=== PATIENT | male | born 1955 | race American Indian/Alaskan Native ===

== ENCOUNTER 2021-04-19 23:47 | Emergency (ER) | payer MEDICARE ==
--- NOTE | 2021-04-20 00:36 | Emergency Department Report ---
HPI <KAMILLA CHANELNETTA - Last Filed: 04/20/21 16:16> - HPI HPI: 65-year-old male with history of diabetes, CKD, and Alzheimer's dementia brought from [facility] due to concern about the patient's combative, violent, and threatening behavior. According to the EMS report and the documents provided by the shelter, the patient has a history of becoming very agitated. However, his agitation has gotten to the point where he yells and screams, and has been attempting to leave. He does not follow staff directions and becomes violent with them. Reportedly earlier tonight he threatened to kill staff at the shelter. For that reason they felt that he was a danger to himself and sent him to the emergency room for further evaluation. Of note, this is not a new problem for him but has been ongoing. The patient himself denies knowledge of why he is here. He denies any physical complaints. He denies SI/HI, auditory hallucinations, visual hallucinations, or any other psychiatric symptoms. Nonetheless, the patient is oriented only to self and not to time, place, or situation. Labs have resulted and reveal no significant leukocytosis and only mild anemia. Creatinine is elevated at 1.9 with elevated BUN of 33. Nonetheless, review the patient's medical records from his other facility reveals he has a history of CKD with his most recent creatinine being 1.5. Although he may have slight JOHNNIE, this would not explain the patient's current presentation. He should continue t o drink copious fluids. He is medically cleared for mental health assessment and placement if necessary. Urinalysis and UDS is still pending. I have sent a coronavirus test as well. <GRICELDA CLARK - Last Filed: 04/23/21 10:29> - General Chief Complaint: Psych Time Seen by Provider: 04/20/21 00:14 ED Past Medical Hx <YANIQUEDIEGO - Last Filed: 04/20/21 16:16> - Past Medical History Previous Medical History?: Yes Hx Hypertension: Yes Hx Diabetes: Yes Hx Dementia: Yes - Social History Smoking Status: Light Tobacco Smoker Substance Use Type: None <GRICELDA CLARK - Last Filed: 04/23/21 10:29> - Medications Home Medications: Home Medications Medication Instructions Recorded Confirmed Last Taken Type amLODIPine 10 mg PO QDAY #30 tablet 07/02/16 04/20/21 Unknown Rx Acetaminophen 1,000 mg PO Q6H PRN 04/20/21 04/20/21 Unknown History Aspirin 325 mg PO QDAY 04/20/21 04/20/21 Unknown History Insulin NPH Hum/Reg Insulin Hm 35 unit SQ DAILY 04/20/21 04/20/21 Unknown History [HumuLIN 70-30 Vial] Metoprolol Xl [Metoprolol 25 mg PO QDAY 04/20/21 04/20/21 Unknown History SUCCINATE ER TAB] Pioglitazone HCl [Actos] 30 mg PO DAILY 04/20/21 04/20/21 Unknown History Sertraline [Zoloft] 50 mg PO QDAY 04/20/21 04/20/21 Unknown History donepeziL [Aricept] 10 mg PO QDAY 04/20/21 04/20/21 Unknown History ED Review of Systems ROS: Stated complaint: MH Other details as noted in HPI <DIEGO CHANEL - Last Filed: 04/20/21 16:16> ROS: Stated complaint: MH Other details as noted in HPI Constitutional: denies: chills, fever Eyes: denies: eye pain, vision change ENT: denies: throat pain, congestion Respiratory: denies: cough, shortness of breath Cardiovascular: denies: chest pain, palpitations Gastrointestinal: denies: abdominal pain, nausea, vomiting Genitourinary: denies: dysuria Musculoskeletal: denies: back pain Skin: denies: rash Neurological: denies: headache, weakness, numbness Psychiatric: denies: auditory hallucinations, visual hallucinations, homicidal thoughts, suicidal thoughts <GRICELDA CLARK - Last Filed: 04/23/21 10:29> Physical Exam - Physical Exam Vital Signs: Vital Signs 04/20/21 04/20/21 04/20/21 00:54 02:32 09:06 Temperature 97.8 F 97.9 F Pulse Rate 65 69 Respiratory 20 20 18 Rate Blood Pressure 178/64 139/70 [Left] O2 Sat by Pulse 98 100 98 Oximetry <DIEGO CHANEL - Last Filed: 04/20/21 16:16> - Physical Exam Physical Exam: GENERAL: Well developed and well nourished. No acute distress HEENT: Normocephalic. No obvious signs of trauma. Moist mucous membranes. Poor dentition. EYES: Extraocular movements are intact. NECK: Supple. Trachea is midline. LUNGS: Nonlabored breathing. Equal chest rise bilaterally. Clear to auscultation bilaterally. HEART/CARDIOVASCULAR: Regular rate and rhythm. No murmurs or rubs. VASCULAR: 2+ peripheral pulses. Cap refill < 2 seconds ABDOMEN: Abdomen is soft and nondistended. There is no significant tenderness, guarding or rebound. SKIN: Skin is warm and dry NEURO: Patient is awake and alert. Oriented to self but nbot to time, place, or situation. rfid engineer II-XII grossly intact. No focal deficits. Normal motor and sensory exam throughout. Normal speech. Normal gait. MUSCULOSKELETAL: No obvious deformities. No significant tenderness. Normal ROM throughout. <GRICELDA CLARK - Last Filed: 04/23/21 10:29> ED Course Vital Signs 04/20/21 04/20/21 04/20/21 00:54 02:32 09:06 Temperature 97.8 F 97.9 F Pulse Rate 65 69 Respiratory 20 20 18 Rate Blood Pressure 178/64 139/70 [Left] O2 Sat by Pulse 98 100 98 Oximetry <DIEGO CHANEL - Last Filed: 04/20/21 16:16> ED Medical Decision Making - Lab Data Result diagrams: 04/20/21 00:33 04/20/21 00:33 - Medical Decision Making Patient is discharged back to [facility]. <DIEGO CHANEL - Last Filed: 04/20/21 16:16> - Lab Data Result diagrams: 04/20/21 00:33 04/20/21 00:33 Lab Results 04/20/21 04/20/21 04/20/21 Range/Units 00:33 00:33 00:33 WBC 6.4 (4.5-11.0) K/mm3 RBC 3.31 L (3.65-5.03) M/mm3 Hgb 10.0 L (11.8-15.2) gm/dl Hct 29.5 L (35.5-45.6) % MCV 89 (84-94) fl MCH 30 (28-32) pg MCHC 34 (32-34) % RDW 14.5 (13.2-15.2) % Plt Count 219 (140-440) K/mm3 Lymph % (Auto) 27.3 (13.4-35.0) % [place] % (Auto) 9.6 H (0.0-7.3) % Eos % (Auto) 1.6 (0.0-4.3) % Baso % (Auto) 0.8 (0.0-1.8) % Lymph # (Auto) 1.7 (1.2-5.4) K/mm3 [place] # (Auto) 0.6 (0.0-0.8) K/mm3 Eos # (Auto) 0.1 (0.0-0.4) K/mm3 Baso # (Auto) 0.1 (0.0-0.1) K/mm3 Seg Neutrophils % 60.7 (40.0-70.0) % Seg Neutrophils # 3.9 (1.8-7.7) K/mm3 Sodium 142 (137-145) mmol/L Potassium 4.2 (3.6-5.0) mmol/L Chloride 108.0 H (98-107) mmol/L Carbon Dioxide 25 (22-30) mmol/L Anion Gap 13 mmol/L BUN 31 H (9-20) mg/dL Creatinine 1.9 H (0.8-1.3) mg/dL Estimated GFR 43 ml/min BUN/Creatinine Ratio 16 % Glucose 133 H (75-100) mg/dL Calcium 8.8 (8.4-10.2) mg/dL Urine Color (Yellow) Urine Turbidity (Clear) Urine pH (5.0-7.0) Ur Specific Temple (1.003-1.030) Urine Protein (Negative) mg/dL Urine Glucose (UA) (Negative) mg/dL Urine Ketones (Negative) mg/dL Urine Blood (Negative) Urine Nitrite (Negative) Urine Bilirubin (Negative) Urine Urobilinogen (<2.0) mg/dL Ur Leukocyte Esterase (Negative) Urine WBC (Auto) (0.0-6.0) /HPF Urine RBC (Auto) (0.0-6.0) /HPF Urine Mucus /HPF Salicylates < 0.3 L (2.8-20.0) mg/dL Urine Opiates Screen Urine Methadone Screen Acetaminophen (10.0-30.0) ug/mL Ur Barbiturates Screen Ur Phencyclidine Scrn Ur Amphetamines Screen U Benzodiazepines Scrn Urine Cocaine Screen U Marijuana (THC) Screen Drugs of Abuse Note Plasma/Serum Alcohol (0-0.07) % Coronavirus (PCR) (Negative) 04/20/21 04/20/21 04/20/21 Range/Units 00:33 00:33 Unknown WBC (4.5-11.0) K/mm3 RBC (3.65-5.03) M/mm3 Hgb (11.8-15.2) gm/dl Hct (35.5-45.6) % MCV (84-94) fl MCH (28-32) pg MCHC (32-34) % RDW (13.2-15.2) % Plt Count (140-440) K/mm3 Lymph % (Auto) (13.4-35.0) % [place] % (Auto) (0.0-7.3) % Eos % (Auto) (0.0-4.3) % Baso % (Auto) (0.0-1.8) % Lymph # (Auto) (1.2-5.4) K/mm3 [place] # (Auto) (0.0-0.8) K/mm3 Eos # (Auto) (0.0-0.4) K/mm3 Baso # (Auto) (0.0-0.1) K/mm3 Seg Neutrophils % (40.0-70.0) % Seg Neutrophils # (1.8-7.7) K/mm3 Sodium (137-145) mmol/L Potassium (3.6-5.0) mmol/L Chloride (98-107) mmol/L Carbon Dioxide (22-30) mmol/L Anion Gap mmol/L BUN (9-20) mg/dL Creatinine (0.8-1.3) mg/dL Estimated GFR ml/min BUN/Creatinine Ratio % Glucose (75-100) mg/dL Calcium (8.4-10.2) mg/dL Urine Color Straw (Yellow) Urine Turbidity Clear (Clear) Urine pH 5.0 (5.0-7.0) Ur Specific Temple 1.014 (1.003-1.030) Urine Protein 100 mg/dl (Negative) mg/dL Urine Glucose (UA) Neg (Negative) mg/dL Urine Ketones Neg (Negative) mg/dL Urine Blood Neg (Negative) Urine Nitrite Neg (Negative) Urine Bilirubin Neg (Negative) Urine Urobilinogen < 2.0 (<2.0) mg/dL Ur Leukocyte Esterase Neg (Negative) Urine WBC (Auto) 1.0 (0.0-6.0) /HPF Urine RBC (Auto) 2.0 (0.0-6.0) /HPF Urine Mucus Few /HPF Salicylates (2.8-20.0) mg/dL Urine Opiates Screen Urine Methadone Screen Acetaminophen 5.0 L (10.0-30.0) ug/mL Ur Barbiturates Screen Ur Phencyclidine Scrn Ur Amphetamines Screen U Benzodiazepines Scrn Urine Cocaine Screen U Marijuana (THC) Screen Drugs of Abuse Note Plasma/Serum Alcohol < 0.01 (0-0.07) % Coronavirus (PCR) (Negative) 04/20/21 04/20/21 Range/Units Unknown Unknown WBC (4.5-11.0) K/mm3 RBC (3.65-5.03) M/mm3 Hgb (11.8-15.2) gm/dl Hct (35.5-45.6) % MCV (84-94) fl MCH (28-32) pg MCHC (32-34) % RDW (13.2-15.2) % Plt Count (140-440) K/mm3 Lymph % (Auto) (13.4-35.0) % [place] % (Auto) (0.0-7.3) % Eos % (Auto) (0.0-4.3) % Baso % (Auto) (0.0-1.8) % Lymph # (Auto) (1.2-5.4) K/mm3 [place] # (Auto) (0.0-0.8) K/mm3 Eos # (Auto) (0.0-0.4) K/mm3 Baso # (Auto) (0.0-0.1) K/mm3 Seg Neutrophils % (40.0-70.0) % Seg Neutrophils # (1.8-7.7) K/mm3 Sodium (137-145) mmol/L Potassium (3.6-5.0) mmol/L Chloride (98-107) mmol/L Carbon Dioxide (22-30) mmol/L Anion Gap mmol/L BUN (9-20) mg/dL Creatinine (0.8-1.3) mg/dL Estimated GFR ml/min BUN/Creatinine Ratio % Glucose (75-100) mg/dL Calcium (8.4-10.2) mg/dL Urine Color (Yellow) Urine Turbidity (Clear) Urine pH (5.0-7.0) Ur Specific [place] (1.003-1.030) Urine Protein (Negative) mg/dL Urine Glucose (UA) (Negative) mg/dL Urine Ketones (Negative) mg/dL Urine Blood (Negative) Urine Nitrite (Negative) Urine Bilirubin (Negative) Urine Urobilinogen (<2.0) mg/dL Ur Leukocyte Esterase (Negative) Urine WBC (Auto) (0.0-6.0) /HPF Urine RBC (Auto) (0.0-6.0) /HPF Urine Mucus /HPF Salicylates (2.8-20.0) mg/dL Urine Opiates Screen Negative Urine Methadone Screen Negative Acetaminophen (10.0-30.0) ug/mL Ur Barbiturates Screen Negative Ur Phencyclidine Scrn Negative Ur Amphetamines Screen Negative U Benzodiazepines Scrn Negative Urine Cocaine Screen Negative U Marijuana (THC) Screen Negative Drugs of Abuse Note Disclamer Plasma/Serum Alcohol (0-0.07) % Coronavirus (PCR) Negative (Negative) - Medical Decision Making 65-year-old male with Alzheimer's dementia brought from his shelter due to concern for agitation and combativeness as well as violence and threats against staff at his nursing facility. The patient is oriented only to self but not to time, place, or situation. He has no complaints and denies SI/HI, auditory hallucinations, visual hallucinations, or any other psychiatric symptoms. He also denies any physical complaints. Nonetheless, given the statements provided by staff at his facility which state that the patient threatened to kill staff, we will send a full set of medical clearance labs and have the patient evaluated by the mental health classification control clerk as well as case management to determine whether the patient would be better cared for in a different environment. <GRICELDA CLARK - Last Filed: 04/23/21 10:29> Critical care attestation.: If time is entered above; I have spent that time in minutes in the direct care of this critically ill patient, excluding procedure time. <DIEGO CHANEL - Last Filed: 04/20/21 16:16> Critical care attestation.: If time is entered above; I have spent that time in minutes in the direct care of this critically ill patient, excluding procedure time. <GRICELDA CLARK - Last Filed: 04/23/21 10:29> ED Disposition Is pt being admited?: No Does the pt Need Aspirin: No <DIEGO CHANEL - Last Filed: 04/20/21 16:16> Is pt being admited?: No <GRICELDA CLARK - Last Filed: 04/23/21 10:29> Clinical Impression: Agitation due to dementia, JOHNNIE (acute kidney injury) Disposition: DC/TX-70 ANOTHER TYPE HLTHCARE Condition: Stable Additional Instructions: OUTPATIENT MENTAL HEALTH RESOURCES [facility], [facility] Gayle Cevallos MD: [address] [place] [address] [place] [address] [facility]: [facility] [facility] [address] [place] [address] [place] [address] [phone] [facility]: [facility] Healthcare: [address] [place] [address] [address] [facility] [place] [address] [facility] [address] [facility]: Claude Smith MD: [id number] [facility] [address] [facility] [id number] [facility]: [address] [place], [place] [id number] [phone] [place] CRISIS AND ACCESS LINE: Referrals: PRIMARY CAREMD [Primary Care Provider] - 3-5 Days
[2021-04-20 00:50] LABS: Basophils # (Auto) 0.1 K/mm3 (0.0-0.1); Basophils % (Auto) 0.8 % (0.0-1.8); Eosinophils # (Auto) 0.1 K/mm3 (0.0-0.4); Eosinophils % (Auto) 1.6 % (0.0-4.3); Hematocrit 29.5 % (35.5-45.6); Lymphocytes # (Auto) 1.7 K/mm3 (1.2-5.4); Lymphocytes % (Auto) 27.3 % (13.4-35.0); Mean Corpuscular HGB Conc 34 % (32-34); Mean Corpuscular Volume 89 fl (84-94); Monocytes # (Auto) 0.6 K/mm3 (0.0-0.8); Monocytes % (Auto) 9.6 % (0.0-7.3); Platelet Count 219 K/mm3 (140-440); Red Blood Count 3.31 M/mm3 (3.65-5.03); Red Cell Distribution Width 14.5 % (13.2-15.2)
[2021-04-20 01:06] LABS: Calcium 8.8 mg/dL (8.4-10.2)
[2021-04-20 08:41] LABS: Amphetamine Screen,Urine Negative; Benzodiazepines Screen,Urine Negative; Bilirubin,Urine NEG (Negative); Blood,Urine NEG (Negative); Cannabinoid Screen,Urine Negative; Cocaine Screen,Urine Negative; Color,Urine Straw (Yellow); Methadone Screen,Urine Negative; Mucus,Urine FEW /HPF; Opiate Screen,Urine Negative; Urobilinogen,Urine < 2.0 mg/dL (<2.0)
[2021-04-20 09:08] VITALS: BP 139/70
--- NOTE | 2021-04-20 11:16 | Event Note ---
S: No concerns O: Stable vital signs, patient appears well comfortable, calm cooperative A: Alzheimer's dementia. Patient is medically clear for psychiatric care P: Awaiting treatment recommendation per behavioral health team This gentleman has been discharged back to nursing home facility. I agree that this is an appropriate disposition.
--- NOTE | 2021-04-20 13:42 | Consultation ---
History of Present Illness - Reason for Consult Consult date: 04/20/21 Reason for consult: Agitation - Chief Complaint Chief complaint: Per ED Note: 65-year-old male with history of diabetes, CKD, and Alzheimer's dementia brought from [facility] due to concern about the patient's combative, violent, and threatening behavior. According to the EMS report and the documents provided by the long term, the patient has a history of becoming very agitated. However, his agitation has gotten to the point where he yells and screams, and has been attempting to leave. He does not follow staff directions and becomes violent with them. Reportedly earlier tonight he threatened to kill staff at the long term. For that reason they felt that he was a danger to himself and sent him to the emergency room for further evaluation. Of note, this is not a new problem for him but has been ongoing. The patient himself denies knowledge of why he is here. He denies any physical complaints. He denies SI/HI, auditory hallucinations, visual hallucinations, or any other psychiatric symptoms. Nonetheless, the patient is oriented only to self and not to time, place, or situation. Callum Castillo is a 65 year old who presents via ED for combative behaviors. During my interview with the patient was calm. Patient reports doing well. when asked the reason for this visit, he states " I just got stopped." patient prese nts with some confusion. When asked about employment and living arrangement, he states "I worked at [employer] and live with his ." Per nurse, patient is calm and has not shown any aggressive behaviors. Patient denies any current suicidal/homicidal ideation. PAST PSYCHIATRIC HISTORY: Diagnoses: Alzheimer's dementia Suicide attempts or Self-harm behavior: denies Prior psychiatric hospitalizations: yes Substance Abuse history: denies Previous psychiatric medications tried: noncompliant Outpatient treatment: n/a PAST MEDICAL HISTORY: n/a Family Psychiatric History: None reported or documented SOCIAL HISTORY Marital Status: no Living Arrangements: n/a Employment Status: n/a Access to guns/weapons: n/a Education: n/a History of Abuse: n/a Legal History: n/a REVIEW OF SYSTEMS ROS cannot be reliably obtained from the patient due to his confusion MENTAL STATUS EXAMINATION General Appearance and Behavior: Age appropriate, good hygiene, wearing appropriate clothes, uncooperative polite with questioning. Cooperation: cooperative Psychomotor Behavior: Psychomotor agitation Mood: angry Affect and affective range: irritable Thought Process: circumstantial Thought Content: Paranoid Speech: Normal volume, Regular rate and rhythm Intellectual Functioning: Poor Suicidal Ideation: Denied Homicidal Ideation: Denied Impulse Control: impaired Insight and Judgment: limited Memory: memory impaired Attention:Distractible Orientation: Alert and oriented Diagnoses: Alzheimer's disease unspecified. Current Visit: Yes Status: Acute RECOMMENDATIONS: Risks, benefits and alternatives of medications discussed with the patient, questions answered and consent obtained from patient. PSYCHOTHERAPY: Supportive psychotherapy provided MEDICAL: Per primary team DELIRIUM PRECAUTIONS: Please re-orient patient frequently, keep lights on during the day, and minimize benzodiazepines and opiates as these medications could worsen patient's confusion. JEWEL BLOCKER AND SAWYER: Per medical team DISPOSITION: No indication for acute inpatient psychiatric hospitalization at this time FOLLOW-UP:Will signed off Please contact with any questions and/or concerns. Medications and Allergies Allergies Allergy/AdvReac Type Severity Reaction Status Date / Time No Known Allergies Allergy Verified 06/28/16 20:18 Home Medications Medication Instructions Recorded Confirmed Last Taken Type amLODIPine 10 mg PO QDAY #30 tablet 07/02/16 04/20/21 Unknown Rx Acetaminophen 1,000 mg PO Q6H PRN 04/20/21 04/20/21 Unknown History Aspirin 325 mg PO QDAY 04/20/21 04/20/21 Unknown History Insulin NPH Hum/Reg Insulin Hm 35 unit SQ DAILY 04/20/21 04/20/21 Unknown History [HumuLIN 70-30 Vial] Metoprolol Xl [Metoprolol 25 mg PO QDAY 04/20/21 04/20/21 Unknown History SUCCINATE ER TAB] Pioglitazone HCl [Actos] 30 mg PO DAILY 04/20/21 04/20/21 Unknown History Sertraline [Zoloft] 50 mg PO QDAY 04/20/21 04/20/21 Unknown History donepeziL [Aricept] 10 mg PO QDAY 04/20/21 04/20/21 Unknown History Mental Status Exam - Vital signs Last Vital Signs Temp 97.9 F 04/20/21 09:06 Pulse 69 04/20/21 09:06 Resp 18 04/20/21 09:06 BP 139/70 04/20/21 09:06 Pulse Ox 98 04/20/21 09:06 Results Result Diagrams: 04/20/21 00:33 04/20/21 00:33 Abnormal lab results 04/20/21 04/20/21 04/20/21 Range/Units 00:33 00:33 00:33 RBC 3.31 L (3.65-5.03) M/mm3 Hgb 10.0 L (11.8-15.2) gm/dl Hct 29.5 L (35.5-45.6) % [place] % (Auto) 9.6 H (0.0-7.3) % Chloride 108.0 H (98-107) mmol/L BUN 31 H (9-20) mg/dL Creatinine 1.9 H (0.8-1.3) mg/dL Glucose 133 H (75-100) mg/dL Salicylates < 0.3 L (2.8-20.0) mg/dL Acetaminophen (10.0-30.0) ug/mL 04/20/21 Range/Units 00:33 RBC (3.65-5.03) M/mm3 Hgb (11.8-15.2) gm/dl Hct (35.5-45.6) % [place] % (Auto) (0.0-7.3) % Chloride (98-107) mmol/L BUN (9-20) mg/dL Creatinine (0.8-1.3) mg/dL Glucose (75-100) mg/dL Salicylates (2.8-20.0) mg/dL Acetaminophen 5.0 L (10.0-30.0) ug/mL All other labs normal.
== END 2021-04-20 18:42 | disposition other institution (70) ==
LOC: EDBD → ED 23:47
DX: N17.9 Acute kidney failure, unspecified (principal); Z20.822 Contact with and (suspected) exposure to COVID-19; F03.90 Unspecified dementia, unspecified severity, without behavioral disturbance, psychotic disturbance, mood disturbance, and anxiety; R45.1 Restlessness and agitation; I10 Essential (primary) hypertension; E11.9 Type 2 diabetes mellitus without complications; F17.200 Nicotine dependence, unspecified, uncomplicated; Z79.4 Long term (current) use of insulin; Z79.899 Other long term (current) drug therapy
CPT/HCPCS: 36415; 80048; 80307; 81001; 85025; 99284; U0003; 80320; G0480

== ENCOUNTER 2021-07-24 10:50 | Inpatient (IN) | payer MEDICARE ==
[2021-07-24] MEDS ORDERED: PANTOPRAZOLE 40 MG INJ IV ONE (12:10)
[2021-07-24] MEDS ORDERED: SODIUM CHLORIDE 0.9% 500 ML 500 ML IV ONE ×2 (12:11→13:11)
--- NOTE | 2021-07-24 12:17 | Emergency Department Report ---
HPI - General Chief Complaint: GI Bleed Time Seen by Provider: 07/24/21 11:24 - HPI HPI: 65-year-old male with history of hypertension, prior CVA, advanced dementia, DM 2, and CKD is brought by EMS from his shelter for rectal bleeding. The EMS report was given to the nurse and was apparently very brief saying only that the patient has rectal bleeding. It is unknown how long he has had a rectal bleeding, the nature of it, or any other associated symptoms. The patient is oriented only to self but answers questions and denies any symptoms or co mplaints. However, he says that he "came from work". He does not know why he is here today. He denies rectal bleeding when asked. He is a very unreliable historian and therefore further details of the HPI are limited due to his clinical condition. ED Past Medical Hx - Past Medical History Previous Medical History?: Yes Hx Hypertension: Yes Hx Diabetes: Yes Hx Dementia: Yes - Social History Smoking Status: Light Tobacco Smoker Substance Use Type: None - Medications Home Medications: Home Medications Medication Instructions Recorded Confirmed Last Taken Type amLODIPine 10 mg PO QDAY #30 tablet 07/02/16 07/24/21 Unknown Rx Acetaminophen 1,000 mg PO Q6H PRN 04/20/21 07/24/21 Unknown History Aspirin 325 mg PO QDAY 04/20/21 07/24/21 Unknown History Insulin NPH Hum/Reg Insulin Hm 35 unit SQ DAILY 04/20/21 07/24/21 Unknown Histor y [HumuLIN 70-30 Vial] Metoprolol Xl [Metoprolol 25 mg PO QDAY 04/20/21 07/24/21 Unknown History SUCCINATE ER TAB] Pioglitazone HCl [Actos] 30 mg PO DAILY 04/20/21 07/24/21 Unknown History Sertraline [Zoloft] 50 mg PO QDAY 04/20/21 07/24/21 Unknown History donepeziL [Aricept] 10 mg PO QDAY 04/20/21 07/24/21 Unknown History ED Review of Systems ROS: Stated complaint: RECTAL BLEED Other details as noted in HPI Comment: Unobtainable due to pts medical conditions Physical Exam - Physical Exam Vital Signs: Vital Signs 07/24/21 11:19 Pulse Rate 76 Respiratory 16 Rate Blood Pressure 126/59 [Left] O2 Sat by Pulse 99 Oximetry Physical Exam: GENERAL: Well developed and well nourished. No acute distress HEAD: Normocephalic. No obvious signs of trauma. ENT: Moist mucous membranes. EYES: Extraocular movements are intact. Pupils are equal round and reactive to light bilaterally NECK: Supple. Full ROM is intact. Trachea is midline. LUNGS: Nonlabored breathing. Equal chest rise bilaterally. Clear to auscultation bilaterally. CARDIOVASCULAR: Regular rate and rhythm. II/XI holosystolic murmur. VASCULAR: Cap refill < 2 seconds ABDOMEN: Abdomen is soft and nondistended. There is no significant tenderness, guarding or rebound. RECTAL: Shell Sieve Operator present. There is normal rectal tone but there is melanotic stool with bright red blood present in the rectal vault. Hemoccult positive SKIN: Skin is warm and dry NEURO: Patient is awake and alert. He is oriented to self only. beauty counselor II-XII yovani sly intact. No focal deficits. Normal motor and sensory exam throughout. Normal speech. MUSCULOSKELETAL: No obvious deformities. No significant tenderness. BACK/SPINE: No costovertebral angle tenderness. ED Course Vital Signs 07/24/21 11:19 Pulse Rate 76 Respiratory 16 Rate Blood Pressure 126/59 [Left] O2 Sat by Pulse 99 Oximetry ED Medical Decision Making - Lab Data Result diagrams: 07/25/21 04:07 07/25/21 04:07 Lab Results 07/24/21 07/24/21 07/24/21 Range/Units 12:16 12:16 12:16 WBC 14.2 H (4.5-11.0) K/mm3 RBC 3.44 L (3.65-5.03) M/mm3 Hgb 9.8 L (11.8-15.2) gm/dl Hct 29.6 L (35.5-45.6) % MCV 86 (84-94) fl MCH 29 (28-32) pg MCHC 33 (32-34) % RDW 13.5 (13.2-15.2) % Plt Count 194 (140-440) K/mm3 Lymph % (Auto) 7.4 L (13.4-35.0) % Ness % (Auto) 2.9 (0.0-7.3) % Eos % (Auto) 0.0 (0.0-4.3) % Baso % (Auto) 0.3 (0.0-1.8) % Lymph # (Auto) 1.1 L (1.2-5.4) K/mm3 Ness # (Auto) 0.4 (0.0-0.8) K/mm3 Eos # (Auto) 0.0 (0.0-0.4) K/mm3 Baso # (Auto) 0.0 (0.0-0.1) K/mm3 Seg Neutrophils % 89.4 H (40.0-70.0) % Seg Neutrophils # 12.7 H (1.8-7.7) K/mm3 PT 13.8 (12.2-14.9) Sec. INR 1.00 (0.87-1.13) APTT 27.2 (24.2-36.6) Sec. Sodium 135 L (137-145) mmol/L Potassium 5.4 H (3.6-5.0) mmol/L Chloride 101.8 (98-107) mmol/L Carbon Dioxide 20 L (22-30) mmol/L Anion Gap 19 mmol/L BUN 66 H (9-20) mg/dL Creatinine 2.2 H (0.8-1.3) mg/dL Estimated GFR 36 ml/min BUN/Creatinine Ratio 30 % Glucose 266 H (75-100) mg/dL Calcium 8.7 (8.4-10.2) mg/dL Total Bilirubin 0.20 (0.1-1.2) mg/dL Direct Bilirubin < 0.2 (0-0.2) mg/dL Indirect Bilirubin 0.0 mg/dL AST 10 (5-40) units/L ALT 7 (7-56) units/L Alkaline Phosphatase 50 (35-129) units/L Total Protein 6.9 (6.3-8.2) g/dL Albumin 3.7 L (3.9-5) g/dL Albumin/Globulin Ratio 1.2 % - Medical Decision Making 65-year-old male with diabetes and advanced dementia as well as CKD brought from his shelter due to rectal bleeding. No further history is available because the patient has advanced dementia and is oriented only to self and does not know why he is here. This is his baseline mental status, as I have seen the patient in our emergency department in the past. Vital signs are within normal limits. With a pebble mill operator present, rectal exam was performed revealing grossly melanotic stool with bright red blood present. The remainder of the patient's physical examination revealed only holosystolic murmur of unknown chronicity. Given concern for brisk upper GI bleed, we will obtain a full set of labs including coags. We will order 80 mg of IV Protonix, 1 L of IV fluids, and plan to consult GI once the patient's labs have returned. Labs reveal leukocytosis of 14.2 and anemia with hemoglobin of 9.8. Review of the patient's past medical records reveals that the patient's baseline hemoglobin is 13 although during a recent visit it was 10. Given that the patient presents with GI bleed, the absence of fever or any reported history of infectious symptoms, I feel that the patient's leukocytosis is most likely stress leukocytosis although close monitoring for possible signs/symptoms or infection are warranted. The patient's creatinine is 2.2 and potassium is 5.4. This is not far off from the patient's baseline creatinine of 1.8-2.0. Glucose is elevated at 266 which is being treated by IV fluids. GI has been consulted. At 1:32 PM I spoke with Dr. Penn of GI regarding the case. He agrees with my concern for brisk upper GI bleed and recommends initiation of a Protonix drip with admission to the hospital for planned endoscopy procedure. Repeat H&H has been ordered. At [address] Prieto, the on-call hospitalist regarding the case. He accepts patient for admission and will assume care. Critical Care Time: Yes Critical care time in (mins) excluding proc time.: 35 Critical care attestation.: If time is entered above; I have spent that time in minutes in the direct care of this critically ill patient, excluding procedure time. Critical care time was spent in the evaluation/assessment, work-up, and management of GI bleed requiring initiation of an IV Protonix drip, frequent labs, discussion/consultation with specialist, and frequent reevaluation reassessment ED Disposition Clinical Impression: Dementia, GI bleed, Melena, Hyperglycemia, CKD (chronic kidney disease) Disposition: ADMITTED INPATIENT Is pt being admited?: Yes Condition: Stable
[2021-07-24 13:06] LABS: Alanine Aminotransferase 7 units/L (7-56); Albumin 3.7 g/dL (3.9-5); BUN/Creatinine Ratio 30; Blood Urea Nitrogen 66 mg/dL (9-20); Calcium 8.7 mg/dL (8.4-10.2); Hemolysis Index 4
[2021-07-24 13:08] LABS: Basophils % (Auto) 0.3 % (0.0-1.8); Hematocrit 29.6 % (35.5-45.6); Hemoglobin 9.8 gm/dl (11.8-15.2); Lymphocytes # (Auto) 1.1 K/mm3 (1.2-5.4); Lymphocytes % (Auto) 7.4 % (13.4-35.0); Mean Corpuscular HGB Conc 33 % (32-34); Mean Corpuscular Volume 86 fl (84-94); Monocytes # (Auto) 0.4 K/mm3 (0.0-0.8); Monocytes % (Auto) 2.9 % (0.0-7.3); Platelet Count 194 K/mm3 (140-440); Red Blood Count 3.44 M/mm3 (3.65-5.03); Red Cell Distribution Width 13.5 % (13.2-15.2)
[2021-07-24 13:13] LABS: Bilirubin,Direct < 0.2 mg/dL (0-0.2)
[2021-07-24 13:36] LABS: Partial Thromboplastin Time 27.2 Sec. (24.2-36.6)
--- NOTE | 2021-07-24 13:39 | History and Physical Report ---
History of Present Illness Chief complaint: He was bleeding History of present illness: 65 YO Male Nursing Home Facility Resident at [facility] with Vascular Dementia, Cerebral Atherosclerosis, DM, HTN, CKD, Nicotine Dependence presents to ED for evaluation. Patient has diminished cognition and is unable to provide detailed history. Patient history taken from EMS staff, ED staff, as well as jail facility staff. As per staff the patient was found to have "rectal bleeding" today. EMS was notified and upon arrival the patient was found to be in distress and subsequently tra nsported to [facility] for further care and evaluation of the aforementioned symptoms. The patient was seen and evaluated in the emergency department. All lab and imaging studies reviewed. Patient found to have Hemoccult positive stool as well as blood per blood per rectum. Patient placed in observation status and admitted to telemetry and initiated on GI bleed protocol. GI team consulted in ED. Patient is pending endoscopy as per GI team. No reports of fever, chills, chest pain, palpitation, productive cough, skin rash, recent ill contacts, or known exposure to COVID-19. Prior admission on 06/28/2016 reviewed. All medication listed at time of admission has been reconciled. Advanced care pl anning conducted in ED. Past History Past Medical History: diabetes, hypertension Past Surgical History: No surgical history, Other (Reviewed) Social history: , smoking. denies: alcohol abuse, prescription drug abuse Family history: diabetes, hypertension Medications and Allergies Allergies Allergy/AdvReac Type Severity Reaction Status Date / Time No Known Allergies Allergy Verified 06/28/16 20:18 Home Medications Medication Instructions Recorded Confirmed Last Taken Type amLODIPine 10 mg PO QDAY #30 tablet 07/02/16 07/24/21 Unknown Rx Acetaminophen 1,000 mg PO Q6H PRN 04/20/21 07/24/21 Unknown History Aspirin 325 mg PO QDAY 04/20/21 07/24/21 Unknown History Insulin NPH Hum/Reg Insulin Hm 35 unit SQ DAILY 04/20/21 07/24/21 Unknown History [HumuLIN 70-30 Vial] Metoprolol Xl [Metoprolol 25 mg PO QDAY 04/20/21 07/24/21 Unknown History SUCCINATE ER TAB] Pioglitazone HCl [Actos] 30 mg PO DAILY 04/20/21 07/24/21 Unknown History Sertraline [Zoloft] 50 mg PO QDAY 04/20/21 07/24/21 Unknown History donepeziL [Aricept] 10 mg PO QDAY 04/20/21 07/24/21 Unknown History Active Meds: Active Medications Sodium Chloride (Nacl 0.9% 500 Ml) 500 mls @ 999 mls/hr IV ONCE ONE Stop: 07/24/21 13:41 Pantoprazole Sodium 80 mg/ (Sodium Chloride) 100 mls @ 10 mls/hr IV DIRECT CHARAN Review of Systems ROS unobtainable: due to mental status Exam - Constitutional Vitals: Temp Pulse Resp BP Pulse Ox 76 16 126/59 99 07/24/21 11:19 07/24/21 11:19 07/24/21 11:19 07/24/21 11:19 General appearance: Present: mild distress - EENT Eyes: Present: PERRL ENT: clear oral mucosa, hearing decreased - Neck Neck: Present: supple, normal ROM - Respiratory Respiratory effort: normal Respiratory: bilateral: CTA - Cardiovascular Heart Sounds: Present: S1 & S2. Absent: rub, click - Extremities Extremities: pulses symmetrical, No edema Peripheral Pulses: within normal limits - Abdominal General gastrointestinal: Present: soft, non-tender, non-distended, normal bowel sounds Male genitourinary: Present: normal - Integumentary Integumentary: Present: clear, dry, decreased turgor - Musculoskeletal Musculoskeletal: generalized weakness - Psychiatric Psychiatric: no appropriate mood/affect, no intact judgment & insight, no memory intact - Neurologic Neurologic: CNII-XII intact, no focal deficits, moves all extremities, no gait normal Results - Labs CBC & Chem 7: 07/24/21 15:04 07/24/21 12:16 Labs: Abnormal lab results 07/24/21 07/24/21 Range/Units 12:16 12:16 WBC 14.2 H (4.5-11.0) K/mm3 RBC 3.44 L (3.65-5.03) M/mm3 Hgb 9.8 L (11.8-15.2) gm/dl Hct 29.6 L (35.5-45.6) % Lymph % (Auto) 7.4 L (13.4-35.0) % Lymph # (Auto) 1.1 L (1.2-5.4) K/mm3 Seg Neutrophils % 89.4 H (40.0-70.0) % Seg Neutrophils # 12.7 H (1.8-7.7) K/mm3 Sodium 135 L (137-145) mmol/L Potassium 5.4 H (3.6-5.0) mmol/L Carbon Dioxide 20 L (22-30) mmol/L BUN 66 H (9-20) mg/dL Creatinine 2.2 H (0.8-1.3) mg/dL Glucose 266 H (75-100) mg/dL Albumin 3.7 L (3.9-5) g/dL Assessment and Plan - Patient Problems (1) GI bleed Current Visit: Yes Status: Acute Plan to address problem: GI bleed protocol: IV PPI therapy, CBC, Hemoccult, GI team consulted in ED. Patient pending endoscopy as per GI team. (2) Systemic inflammatory response syndrome Current Visit: Yes Status: Acute Plan to address problem: CBC, empiric IV antibiotic therapy x1 dose, repeat CBC in a.m., supportive care. (3) Vascular dementia Current Visit: Yes Status: Acute Qualifiers: Dementia behavioral disturbance: without behavioral disturbance Qualified Code(s): F01.50 - Vascular dementia without behavioral disturbance Plan to address problem: Verbal prompting, verbal redirection, benzodiazepine therapy as clinically indicated (4) Cerebral atherosclerosis Current Visit: Yes Status: Acute Plan to address problem: Antiplatelet therapy, supportive care. (5) DVT prophylaxis Current Visit: Yes Status: Acute Plan to address problem: SCD to bilateral lower extremities while in bed, hold anticoagulation due to active GI bleed. (6) Advance care planning Current Visit: Yes Status: Acute Plan to address problem: Disease education conducted, care plan discussed, diagnoses discussed, prognosis discussed, patient is full code, +30 minutes.
[2021-07-24] MEDS ORDERED: ALBUTEROL 2.5 MG/3 ML NEBU IH PRN (13:45)
[2021-07-24] MEDS ORDERED: ONDANSETRON 4 MG/2 ML INJ IV PRN (13:45)
[2021-07-24] MEDS: PANTOPRAZOLE 80 MG in SODIUM CHLORIDE 0.9% 100 ML IV SCH (14:31)
[2021-07-24 15:53] LABS: Basophils # (Auto) 0.1 K/mm3 (0.0-0.1); Basophils % (Auto) 0.5 % (0.0-1.8); Hematocrit 27.4 % (35.5-45.6); Hemoglobin 9.3 gm/dl (11.8-15.2); Lymphocytes # (Auto) 1.4 K/mm3 (1.2-5.4); Lymphocytes % (Auto) 9.4 % (13.4-35.0); Mean Corpuscular HGB Conc 34 % (32-34); Mean Corpuscular Volume 85 fl (84-94); Monocytes # (Auto) 0.9 K/mm3 (0.0-0.8); Monocytes % (Auto) 6.2 % (0.0-7.3); Platelet Count 183 K/mm3 (140-440); Red Blood Count 3.21 M/mm3 (3.65-5.03); Red Cell Distribution Width 13.5 % (13.2-15.2)
--- NOTE | 2021-07-24 16:26 | Gastroenterology Consultation ---
History of Present Illness - Reason for Consult Consult date: 07/24/21 GI bleed, melena Requesting physician: GRICELDA CLARK - History of Present Illness The patient is a 65 yo male who presents from snf with reported bloody bm's. Pt with h/o cva, memory loss, and questionable historian, however seemed to be answering some questions appropriately at time of exam. he reports having black appearing stools for the past few days. Denies abdominal pain, no n/v. He takes nsaid's periodically (aleve). h/o ckd, and chronic anemia from previous labs. H/H slightly lower from previous levels but within baseline. HD stable. Past History Past Medical History: diabetes, hypertension Past Surgical History: No surgical history, Other (Reviewed) Social history: , smoking. denies: alcohol abuse, prescription drug abuse Family history: diabetes, hypertension Medications and Allergies Allergies Allergy/AdvReac Type Severity Reaction Status Date / Time No Known Allergies Allergy Verified 06/28/16 20:18 Home Medications Medication Instructions Recorded Confirmed Last Taken Type amLODIPine 10 mg PO QDAY #30 tablet 07/02/16 07/24/21 Unknown Rx Acetaminophen 1,000 mg PO Q6H PRN 04/20/21 07/24/21 Unknown History Aspirin 325 mg PO QDAY 04/20/21 07/24/21 Unknown History Insulin NPH Hum/Reg Insulin Hm 35 unit SQ DAILY 04/20/21 07/24/21 Unknown History [HumuLIN 70-30 Vial] Metoprolol Xl [Metoprolol 25 mg PO QDAY 04/20/21 07/24/21 Unknown History SUCCINATE ER TAB] Pioglitazone HCl [Actos] 30 mg PO DAILY 04/20/21 07/24/21 Unknown History Sertraline [Zoloft] 50 mg PO QDAY 04/20/21 07/24/21 Unknown History donepeziL [Aricept] 10 mg PO QDAY 04/20/21 07/24/21 Unknown History Active Meds: Active Medications Acetaminophen (Acetaminophen 325 Mg Tab) 650 mg PO Q4H PRN PRN Reason: Pain MILD(1-3)/Fever >100.5/VERMA Albuterol (Albuterol 2.5 Mg/3 Ml Nebu) 2.5 mg IH Q4HRT PRN PRN Reason: Shortness Of Breath Hydromorphone HCl (Hydromorphone 1 Mg/1 Ml Inj) 0.5 mg IV Q23H PRN PRN Reason: Pain , Severe (7-10) Pantoprazole Sodium 80 mg/ (Sodium Chloride) 100 mls @ 10 mls/hr IV DIRECT CHARAN Last Admin: 07/24/21 14:31 Dose: 8 mg/hr, 10 mls/hr Documented by: Sodium Chloride (Nacl 0.9% 1000 Ml) 1,000 mls @ 75 mls/hr IV DIRECT CHARAN Ondansetron HCl (Ondansetron 4 Mg/2 Ml Inj) 4 mg IV Q8H PRN PRN Reason: Nausea And Vomiting Oxycodone/Acetaminophen (Oxycodone /Acetaminophen 5-325mg Tab) 1 tab PO Q12H PRN PRN Reason: Pain, Moderate (4-6) Pantoprazole Sodium (Pantoprazole 40 Mg Inj) 40 mg IV BID CHARAN Sodium Chloride (Sodium Chloride 0.9% 10 Ml Flush Syringe) 10 ml IV BID CHARAN Sodium Chloride (Sodium Chloride 0.9% 10 Ml Flush Syringe) 10 ml IV PRN PRN PRN Reason: LINE FLUSH Reviewed/updated patient's home and current medications Review of Systems - Review of Systems All systems: negative (per HPI) Exam - Constitutional Vital Signs: Temp Pulse Resp BP Pulse Ox 67 13 114/60 99 07/24/21 15:00 07/24/21 15:00 07/24/21 15:16 07/24/21 15:16 General appearance: no acute distress - EENT Eyes: PERRL ENT: hearing intact - Neck Neck: supple - Respiratory Respiratory effort: normal Respiratory: left: CTA - Cardiovascular Rhythm: regular Heart Sounds: Present: S1 & S2 - Gastrointestinal General gastrointestinal: Present: soft, non-tender, non-distended - Integumentary Integumentary: Present: clear, warm - Neurologic Neurological: oriented to person, oriented to place - Psychiatric Psychiatric: appropriate mood/affect - Labs CBC & Chem 7: 07/24/21 15:04 07/24/21 12:16 Lab Results: Laboratory Results - last 24 hr 07/24/21 07/24/21 07/24/21 12:16 12:16 12:16 WBC 14.2 H RBC 3.44 L Hgb 9.8 L Hct 29.6 L MCV 86 MCH 29 MCHC 33 RDW 13.5 Plt Count 194 Lymph % (Auto) 7.4 L Kimble % (Auto) 2.9 Eos % (Auto) 0.0 Baso % (Auto) 0.3 Lymph # (Auto) 1.1 L Kimble # (Auto) 0.4 Eos # (Auto) 0.0 Baso # (Auto) 0.0 Seg Neutrophils % 89.4 H Seg Neutrophils # 12.7 H PT 13.8 INR 1.00 APTT 27.2 Sodium 135 L Potassium 5.4 H Chloride 101.8 Carbon Dioxide 20 L Anion Gap 19 BUN 66 H Creatinine 2.2 H Estimated GFR 36 BUN/Creatinine Ratio 30 Glucose 266 H Calcium 8.7 Total Bilirubin 0.20 Direct Bilirubin < 0.2 Indirect Bilirubin 0.0 AST 10 ALT 7 Alkaline Phosphatase 50 Total Protein 6.9 Albumin 3.7 L Albumin/Globulin Ratio 1.2 07/24/21 15:04 WBC 15.0 H RBC 3.21 L Hgb 9.3 L Hct 27.4 L MCV 85 MCH 29 MCHC 34 RDW 13.5 Plt Count 183 Lymph % (Auto) 9.4 L Kimble % (Auto) 6.2 Eos % (Auto) 0.0 Baso % (Auto) 0.5 Lymph # (Auto) 1.4 Kimble # (Auto) 0.9 H Eos # (Auto) 0.0 Baso # (Auto) 0.1 Seg Neutrophils % 83.9 H Seg Neutrophils # 12.6 H PT INR APTT Sodium Potassium Chloride Carbon Dioxide Anion Gap BUN Creatinine Estimated GFR BUN/Creatinine Ratio Glucose Calcium Total Bilirubin Direct Bilirubin Indirect Bilirubin AST ALT Alkaline Phosphatase Total Protein Albumin Albumin/Globulin Ratio Assessment and Plan 1. Anemia with possible gi bleed/melena - HD stable, + nsaid use so risk for PUD. cont IV PPI drip, monitor labs (transfuse prn to keep hgb > 7) and will plan for EGD tomorrow. npo at midnight.
[2021-07-24] MEDS: PANTOPRAZOLE 40 MG INJ IV SCH (22:16)
[2021-07-25 04:32] LABS: Basophils # (Auto) 0.1 K/mm3 (0.0-0.1); Basophils % (Auto) 0.5 % (0.0-1.8); Eosinophils % (Auto) 0.4 % (0.0-4.3); Hemoglobin 8.2 gm/dl (11.8-15.2); Lymphocytes # (Auto) 2.1 K/mm3 (1.2-5.4); Lymphocytes % (Auto) 19.3 % (13.4-35.0); Mean Corpuscular HGB Conc 34 % (32-34); Mean Corpuscular Volume 87 fl (84-94); Monocytes # (Auto) 1.1 K/mm3 (0.0-0.8); Monocytes % (Auto) 9.9 % (0.0-7.3); Platelet Count 166 K/mm3 (140-440); Red Blood Count 2.77 M/mm3 (3.65-5.03); Red Cell Distribution Width 13.9 % (13.2-15.2)
[2021-07-25 05:08] LABS: Calcium 8.5 mg/dL (8.4-10.2)
[2021-07-25] MEDS ORDERED: LIDOCAINE MPF (2%) 20 MG/1 ML VIAL 5 ML ONE (09:24)
[2021-07-25] MEDS ORDERED: propofoL 200 MG/20 ML VIAL IV ONE (09:24)
[2021-07-25] MEDS ORDERED: EPINEPHrine 1 MG/10 ML SYRINGE ONE (09:38)
[2021-07-25] MEDS ORDERED: EPINEPHrine 1 MG/10 ML SYRINGE IV ONE (09:45)
[2021-07-25] MEDS: PANTOPRAZOLE 40 MG INJ IV SCH (10:00)
--- NOTE | 2021-07-25 10:06 | Operative Report ---
Operative Report Operative Report: Esophagogastroduodenoscopy Procedure Note with epinephrine injection and biopsy Date of procedure: 07/25/2021 Endoscopist: Ishmael Penn Pre-op diagnosis/indication: Upper GI bleed Post-op diagnosis: Large cratered duodenal bulb ulcer MEDICATIONS: MAC COMPLICATIONS: No immediate complications ESTIMATED BLOOD LOSS: Minimal DESCRIPTION OF PROCEDURE: After consent was obtained from the patient's daughter over the phone, the patient was placed in the left lateral decubitis position. The olympus endoscope was inserted into the patient's mouth under direct vision and advanced to the 2nd portion of the duodenum without difficulty. The patient tolerated the procedure well. The views of the mucosa were good. The patient's vital signs were monitored continuously throughout the procedure. FINDINGS: There was a non-obstructing B ring in the lower esophagus. The stomach appeared normal. Gastric biopsies were obtained to evaluate for H pylori (given duodenal ulcer) There was a large (~1.5 to 2 cm), cratered ulcer in the posterior wall of the duodenal bulb with severely inflamed surround mucosa. There was oozing of blood at the margins of the ulcer. No obvious visible vessel was seen although full visualization of the ulcer was difficult due to the location. The areas of o ozing was treated with epinephrine injection (3 cc total). There was no active bleeding seen at the end of the procedure. IMPRESSION: 1. Large, cratered duodenal bulb ulcer with oozing of blood s/p epinephrine injection. No active bleeding at the end of the procedure. Gastric biopsies obtained to evaluate for H pylori. RECOMMENDATIONS: -continue IV PPI drip and close monitoring. If patient re-bleeds, will need IR consult to evaluate for embolization as this may be a GDA involved bleeding given location of the ulcer (discussed with IR). -pt's daughter updated on plan and findings of endoscopy
--- NOTE | 2021-07-25 10:28 | Anesthesia Day of Surgery ---
Anesthesia Day of Surgery - Day of Surgery Patient Examined: Yes Patient H&P Reviewed: Yes Patient is NPO: Yes
--- NOTE | 2021-07-25 10:28 | Anesthesia Consultation ---
Anesthesia Consult and Med Hx Date of service: 07/25/21 - Airway Mallampati Class: Class I Intubation Access Assessment: Probably Good - Pre-Operative Health Status ASA Pre-Surgery Classification: ASA3 Proposed Anesthetic Plan: MAC - Pulmonary Hx Smoking: Yes Hx Respiratory Symptoms: No - Cardiovascular System Hx Hypertension: Yes - Central Nervous System CVA: Yes Hx Psychiatric Problems: Yes (dementia) - Endocrine Hx Renal Disease: Yes (CKD) Hx Liver Disease: No Hx Insulin Dependent Diabetes: No - Hematic Hx Anemia: Yes
--- NOTE | 2021-07-25 10:53 | Progress Note ---
Assessment and Plan Assessment and plan: Large duodenal bulb ulcer GI bleed. Hypertension Vascular dementia Cerebral atherosclerosis/history of CVA 07/25/2021. Patient underwent upper endoscopy which revealed a non-obstructing B ring in the lower esophagus. The stomach appeared normal. Gastric biopsies were obtained to evaluate for H pylori (given duodenal ulcer). There was a large (~1.5 to 2 cm), cratered ulcer in the posterior wall of the duodenal bulb with severely inflamed surround mucosa. There was oozing of blood at the mar gins of the ulcer. No obvious visible vessel was seen although full visualization of the ulcer was difficult due to the location. The areas of oozing was treated with epinephrine injection (3 cc total). There was no active bleeding seen at the end of the procedure. Continue to monitor H&H and tr ansfuse for hemoglobin less than 7. If patient rebleeds will likely need to have IR evaluation History Interval history: No new issues overnight Hospitalist Physical - Constitutional Vitals: Temp Pulse Resp BP Pulse Ox 97.5 F L 74 16 157/62 99 07/25/21 10:00 07/25/21 10:20 07/25/21 10:20 07/25/21 10:20 07/25/21 10:20 General appearance: Present: no acute distress - EENT Eyes: Present: PERRL, EOM intact ENT: hearing intact, clear oral mucosa, dentition normal - Neck Neck: Present: supple, normal ROM - Respiratory Respiratory effort: normal Respiratory: bilateral: CTA - Cardiovascular Rhythm: regular Heart Sounds: Present: S1 & S2. Absent: gallop, rub - Extremities Extremities: no ischemia, No edema, Full ROM - Abdominal General gastrointestinal: soft, non-tender, non-distended, normal bowel sounds - Integumentary Integumentary: Present: clear, warm, dry - Neurologic Neurologic: CNII-XII intact, moves all extremities Results - Labs CBC & Chem 7: 07/25/21 04:07 07/25/21 04:07 Labs: Laboratory Last Values WBC 10.7 K/mm3 (4.5-11.0) 07/25/21 04:07 RBC 2.77 M/mm3 (3.65-5.03) L 07/25/21 04:07 Hgb 8.2 gm/dl (11.8-15.2) L 07/25/21 04:07 Hct 24.0 % (35.5-45.6) L 07/25/21 04:07 MCV 87 fl (84-94) 07/25/21 04:07 MCH 30 pg (28-32) 07/25/21 04:07 MCHC 34 % (32-34) 07/25/21 04:07 RDW 13.9 % (13.2-15.2) 07/25/21 04:07 Plt Count 166 K/mm3 (140-440) 07/25/21 04:07 Lymph % (Auto) 19.3 % (13.4-35.0) 07/25/21 04:07 [place] % (Auto) 9.9 % (0.0-7.3) H 07/25/21 04:07 Eos % (Auto) 0.4 % (0.0-4.3) 07/25/21 04:07 Baso % (Auto) 0.5 % (0.0-1.8) 07/25/21 04:07 Lymph # (Auto) 2.1 K/mm3 (1.2-5.4) 07/25/21 04:07 [place] # (Auto) 1.1 K/mm3 (0.0-0.8) H 07/25/21 04:07 Eos # (Auto) 0.0 K/mm3 (0.0-0.4) 07/25/21 04:07 Baso # (Auto) 0.1 K/mm3 (0.0-0.1) 07/25/21 04:07 Seg Neutrophils % 69.9 % (40.0-70.0) 07/25/21 04:07 Seg Neutrophils # 7.5 K/mm3 (1.8-7.7) 07/25/21 04:07 PT 13.8 Sec. (12.2-14.9) 07/24/21 12:16 INR 1.00 (0.87-1.13) 07/24/21 12:16 APTT 27.2 Sec. (24.2-36.6) 07/24/21 12:16 Sodium 142 mmol/L (137-145) D 07/25/21 04:07 Potassium 4.9 mmol/L (3.6-5.0) 07/25/21 04:07 Chloride 109.6 mmol/L (98-107) H 07/25/21 04:07 Carbon Dioxide 22 mmol/L (22-30) 07/25/21 04:07 Anion Gap 15 mmol/L 07/25/21 04:07 BUN 62 mg/dL (9-20) H 07/25/21 04:07 Creatinine 1.9 mg/dL (0.8-1.3) H 07/25/21 04:07 Estimated GFR 43 ml/min 07/25/21 04:07 BUN/Creatinine Ratio 33 % 07/25/21 04:07 Glucose 171 mg/dL (75-100) H 07/25/21 04:07 POC Glucose 164 mg/dL (70-105) H 07/25/21 10:12 Calcium 8.5 mg/dL (8.4-10.2) 07/25/21 04:07 Total Bilirubin 0.20 mg/dL (0.1-1.2) 07/24/21 12:16 Direct Bilirubin < 0.2 mg/dL (0-0.2) 07/24/21 12:16 Indirect Bilirubin 0.0 mg/dL 07/24/21 12:16 AST 10 units/L (5-40) 07/24/21 12:16 ALT 7 units/L (7-56) 07/24/21 12:16 Alkaline Phosphatase 50 units/L (35-129) 07/24/21 12:16 Total Protein 6.9 g/dL (6.3-8.2) 07/24/21 12:16 Albumin 3.7 g/dL (3.9-5) L 07/24/21 12:16 Albumin/Globulin Ratio 1.2 % 07/24/21 12:16 Microbiology: Microbiology 07/24/21 12:06 Stool Stool Occult Blood (ARIES) - Final Active Medications - Current Medications Current Medications: Generic Name Dose Route Start Last Admin Trade Name Freq PRN Reason Stop Dose Admin Acetaminophen 650 mg 07/24/21 13:45 Acetaminophen 325 Mg Tab PO Q4H PRN Pain MILD(1-3)/Fever >100.5/VERMA Albuterol 2.5 mg 07/24/21 13:45 Albuterol 2.5 Mg/3 Ml Nebu IH Q4HRT PRN Shortness Of Breath Hydromorphone HCl 0.5 mg 07/24/21 13:45 Hydromorphone 1 Mg/1 Ml Inj IV Q23H PRN Pain , Severe (7-10) Pantoprazole Sodium 80 mg/ 100 mls @ 10 mls/hr 07/24/21 14:00 07/24/21 14:31 Sodium Chloride IV 8 mg/hr DIRECT CHARAN 10 mls/hr Administration 8 MG/HR Sodium Chloride 1,000 mls @ 75 mls/hr 07/24/21 14:00 Nacl 0.9% 1000 Ml IV DIRECT CHARAN Ondansetron HCl 4 mg 07/24/21 13:45 Ondansetron 4 Mg/2 Ml Inj IV Q8H PRN Nausea And Vomiting Oxycodone/Acetaminophen 1 tab 07/24/21 13:45 Oxycodone /Acetaminophen 5-325mg Tab PO Q12H PRN Pain, Moderate (4-6) Pantoprazole Sodium 40 mg 07/24/21 22:00 07/24/21 22:16 Pantoprazole 40 Mg Inj IV 40 mg BID CHARAN Administration Sodium Chloride 10 ml 07/24/21 22:00 07/24/21 22:16 Sodium Chloride 0.9% 10 Ml Flush Syringe IV 10 ml BID CHARAN Administration Sodium Chloride 10 ml 07/24/21 13:45 Sodium Chloride 0.9% 10 Ml Flush Syringe IV PRN PRN LINE FLUSH
[2021-07-25] MEDS: PANTOPRAZOLE 80 MG in SODIUM CHLORIDE 0.9% 100 ML IV SCH (12:54)
--- NOTE | 2021-07-25 15:24 | Post Anesthesia Evaluation ---
- Post Anesthesia Evaluation Patient Participated: Yes Airway Patent: Yes Stable Respiratory Function: Yes Nausea/Vomiting: No Temp > 96.8F: Yes Pain Manageable: Yes Adequeate Hydration: Yes Anesthesia Complications: No
[2021-07-26 06:06] LABS: Basophils % (Auto) 0.4 % (0.0-1.8); Eosinophils # (Auto) 0.1 K/mm3 (0.0-0.4); Eosinophils % (Auto) 0.6 % (0.0-4.3); Hematocrit 20.5 % (35.5-45.6); Hemoglobin 7.1 gm/dl (11.8-15.2); Lymphocytes # (Auto) 1.5 K/mm3 (1.2-5.4); Lymphocytes % (Auto) 16.7 % (13.4-35.0); Mean Corpuscular HGB Conc 35 % (32-34); Mean Corpuscular Volume 86 fl (84-94); Monocytes # (Auto) 0.9 K/mm3 (0.0-0.8); Monocytes % (Auto) 10.1 % (0.0-7.3); Platelet Count 164 K/mm3 (140-440); Red Cell Distribution Width 13.6 % (13.2-15.2)
[2021-07-26 06:27] LABS: Calcium 8.3 mg/dL (8.4-10.2)
--- NOTE | 2021-07-26 09:16 | Event Note ---
Date: 07/26/21 Patient with duodenal ulcer bleed treated by endoscopy. No additional bleeding. Patient is comfortable with no complaints of pain. No overnight bleeding reported by either patient or nursing. His H&H appear to be equilibrating. Discussed with patient possible embolization if he rebleeds. Otherwise, no intervention planned.
[2021-07-26] MEDS ORDERED: SODIUM CHLORIDE 0.9% 500 ML 500 ML IV NR (10:06)
--- NOTE | 2021-07-26 10:08 | Progress Note ---
Assessment and Plan Assessment and plan: Large duodenal bulb ulcer GI bleed. Hypertension Vascular dementia Cerebral atherosclerosis/history of CVA 07/25/2021. Patient underwent upper endoscopy which revealed a non-obstructing B ring in the lower esophagus. The stomach appeared normal. Gastric biopsies were obtained to evaluate for H pylori (given duodenal ulcer). There was a large (~1.5 to 2 cm), cratered ulcer in the posterior wall of the duodenal bulb with severely inflamed surround mucosa. There was oozing of blood at the mar gins of the ulcer. No obvious visible vessel was seen although full visualization of the ulcer was difficult due to the location. The areas of oozing was treated with epinephrine injection (3 cc total). There was no active bleeding seen at the end of the procedure. Continue to monitor H&H and tr ansfuse for hemoglobin less than 7. If patient rebleeds will likely need to have IR evaluation 07/26/2021. Patient denies any active bleeding, hematochezia or melena. However, patient with hemoglobin of 7.1. Also, given the size of the ulcer along with drop in hemoglobin, we will transfuse PRBCs for now. Continue to monitor for any rebleeding. GI following History Interval history: No new issues overnight Hospitalist Physical - Constitutional Vitals: Temp Pulse Resp BP Pulse Ox 97.9 F 76 16 118/52 100 07/26/21 08:05 07/26/21 08:05 07/26/21 08:05 07/26/21 08:05 07/26/21 08:05 General appearance: Present: no acute distress - EENT Eyes: Present: PERRL, EOM intact ENT: hearing intact, clear oral mucosa, dentition normal - Neck Neck: Present: supple, normal ROM - Respiratory Respiratory effort: normal Respiratory: bilateral: CTA - Cardiovascular Rhythm: regular Heart Sounds: Present: S1 & S2. Absent: gallop, rub - Extremities Extremities: no ischemia, No edema, Full ROM - Abdominal General gastrointestinal: soft, non-tender, non-distended, normal bowel sounds - Integumentary Integumentary: Present: clear, warm, dry - Neurologic Neurologic: CNII-XII intact, moves all extremities Results - Labs CBC & Chem 7: 07/26/21 04:43 07/26/21 04:43 Labs: Laboratory Last Values WBC 9.1 K/mm3 (4.5-11.0) 07/26/21 04:43 RBC 2.40 M/mm3 (3.65-5.03) L 07/26/21 04:43 Hgb 7.1 gm/dl (11.8-15.2) L 07/26/21 04:43 Hct 20.5 % (35.5-45.6) L 07/26/21 04:43 MCV 86 fl (84-94) 07/26/21 04:43 MCH 30 pg (28-32) 07/26/21 04:43 MCHC 35 % (32-34) H 07/26/21 04:43 RDW 13.6 % (13.2-15.2) 07/26/21 04:43 Plt Count 164 K/mm3 (140-440) 07/26/21 04:43 Lymph % (Auto) 16.7 % (13.4-35.0) 07/26/21 04:43 [place] % (Auto) 10.1 % (0.0-7.3) H 07/26/21 04:43 Eos % (Auto) 0.6 % (0.0-4.3) 07/26/21 04:43 Baso % (Auto) 0.4 % (0.0-1.8) 07/26/21 04:43 Lymph # (Auto) 1.5 K/mm3 (1.2-5.4) 07/26/21 04:43 [place] # (Auto) 0.9 K/mm3 (0.0-0.8) H 07/26/21 04:43 Eos # (Auto) 0.1 K/mm3 (0.0-0.4) 07/26/21 04:43 Baso # (Auto) 0.0 K/mm3 (0.0-0.1) 07/26/21 04:43 Seg Neutrophils % 72.2 % (40.0-70.0) H 07/26/21 04:43 Seg Neutrophils # 6.6 K/mm3 (1.8-7.7) 07/26/21 04:43 PT 13.8 Sec. (12.2-14.9) 07/24/21 12:16 INR 1.00 (0.87-1.13) 07/24/21 12:16 APTT 27.2 Sec. (24.2-36.6) 07/24/21 12:16 Sodium 140 mmol/L (137-145) 07/26/21 04:43 Potassium 4.1 mmol/L (3.6-5.0) 07/26/21 04:43 Chloride 111.8 mmol/L (98-107) H 07/26/21 04:43 Carbon Dioxide 23 mmol/L (22-30) 07/26/21 04:43 Anion Gap 9 mmol/L 07/26/21 04:43 BUN 44 mg/dL (9-20) H 07/26/21 04:43 Creatinine 1.7 mg/dL (0.8-1.3) H 07/26/21 04:43 Estimated GFR 49 ml/min 07/26/21 04:43 BUN/Creatinine Ratio 26 % 07/26/21 04:43 Glucose 172 mg/dL (75-100) H 07/26/21 04:43 POC Glucose 223 mg/dL (70-105) H 07/26/21 09:07 Calcium 8.3 mg/dL (8.4-10.2) L 07/26/21 04:43 Total Bilirubin 0.20 mg/dL (0.1-1.2) 07/24/21 12:16 Direct Bilirubin < 0.2 mg/dL (0-0.2) 07/24/21 12:16 Indirect Bilirubin 0.0 mg/dL 07/24/21 12:16 AST 10 units/L (5-40) 07/24/21 12:16 ALT 7 units/L (7-56) 07/24/21 12:16 Alkaline Phosphatase 50 units/L (35-129) 07/24/21 12:16 Total Protein 6.9 g/dL (6.3-8.2) 07/24/21 12:16 Albumin 3.7 g/dL (3.9-5) L 07/24/21 12:16 Albumin/Globulin Ratio 1.2 % 07/24/21 12:16 Tam/IV: Voiding Method Incontinent Active Medications - Current Medications Current Medications: Generic Name Dose Route Start Last Admin Trade Name Freq PRN Reason Stop Dose Admin Acetaminophen 650 mg 07/24/21 13:45 Acetaminophen 325 Mg Tab PO Q4H PRN Pain MILD(1-3)/Fever >100.5/VERMA Albuterol 2.5 mg 07/24/21 13:45 Albuterol 2.5 Mg/3 Ml Nebu IH Q4HRT PRN Shortness Of Breath Hydromorphone HCl 0.5 mg 07/24/21 13:45 Hydromorphone 1 Mg/1 Ml Inj IV Q23H PRN Pain , Severe (7-10) Pantoprazole Sodium 80 mg/ 100 mls @ 10 mls/hr 07/24/21 14:00 07/25/21 12:54 Sodium Chloride IV 8 mg/hr DIRECT CHARAN 10 mls/hr Administration 8 MG/HR Sodium Chloride 1,000 mls @ 75 mls/hr 07/24/21 14:00 Nacl 0.9% 1000 Ml IV DIRECT CHARAN Ondansetron HCl 4 mg 07/24/21 13:45 Ondansetron 4 Mg/2 Ml Inj IV Q8H PRN Nausea And Vomiting Oxycodone/Acetaminophen 1 tab 07/24/21 13:45 Oxycodone /Acetaminophen 5-325mg Tab PO Q12H PRN Pain, Moderate (4-6) Sodium Chloride 10 ml 07/24/21 22:00 07/25/21 21:12 Sodium Chloride 0.9% 10 Ml Flush Syringe IV 10 ml BID CHARAN Administration Sodium Chloride 10 ml 07/24/21 13:45 Sodium Chloride 0.9% 10 Ml Flush Syringe IV PRN PRN LINE FLUSH
[2021-07-26] MEDS: PANTOPRAZOLE 80 MG in SODIUM CHLORIDE 0.9% 100 ML IV SCH (11:05)
[2021-07-26] MEDS: SODIUM CHLORIDE 0.9% 1000 ML 1,000 ML IV SCH (11:07)
--- NOTE | 2021-07-26 13:03 | Gastroenterology Progress Note ---
Assessment and Plan UGI bleed - s/p EGD with large cratered duodenal bulb ulcer with some mild areas of oozing s/p epi injection, but no definitive high risk lesion/vessel that was seen amenable to treatment. drop in H/h but HD stable, blood transfusion pend ing, cont IV PPI drip and monitor closely. IR following in case pt has signs of recurrent/active bleeding in which case would recommend embolization if feasible Subjective Date of service: 07/26/21 Principal diagnosis: melena Interval history: dark/black appearing BM early this AM per pt's nurse, no episodes since then. pt denies abd pain, n/v, etc. Objective - Constitutional Vitals: Temp Pulse Resp BP Pulse Ox 98.4 F 79 18 151/69 98 07/26/21 11:24 07/26/21 11:24 07/26/21 11:24 07/26/21 11:24 07/26/21 11:29 General appearance: no acute distress - Respiratory Respiratory effort: normal Respiratory: bilateral: CTA - Cardiovascular Rhythm: regular Heart Sounds: Present: S1 & S2 - Gastrointestinal General gastrointestinal: Present: soft, non-tender - Labs CBC & Chem 7: 07/26/21 04:43 07/26/21 04:43 Labs: Laboratory Results - last 24 hr 07/26/21 07/26/21 07/26/21 04:43 04:43 09:07 WBC 9.1 RBC 2.40 L Hgb 7.1 L Hct 20.5 L MCV 86 MCH 30 MCHC 35 H RDW 13.6 Plt Count 164 Lymph % (Auto) 16.7 [place] % (Auto) 10.1 H Eos % (Auto) 0.6 Baso % (Auto) 0.4 Lymph # (Auto) 1.5 [place] # (Auto) 0.9 H Eos # (Auto) 0.1 Baso # (Auto) 0.0 Seg Neutrophils % 72.2 H Seg Neutrophils # 6.6 Sodium 140 Potassium 4.1 Chloride 111.8 H Carbon Dioxide 23 Anion Gap 9 BUN 44 H Creatinine 1.7 H Estimated GFR 49 BUN/Creatinine Ratio 26 Glucose 172 H POC Glucose 223 H Calcium 8.3 L Blood Type Antibody Screen Crossmatch 07/26/21 07/26/21 10:19 11:21 WBC RBC Hgb Hct MCV MCH MCHC RDW Plt Count Lymph % (Auto) [place] % (Auto) Eos % (Auto) Baso % (Auto) Lymph # (Auto) [place] # (Auto) Eos # (Auto) Baso # (Auto) Seg Neutrophils % Seg Neutrophils # Sodium Potassium Chloride Carbon Dioxide Anion Gap BUN Creatinine Estimated GFR BUN/Creatinine Ratio Glucose POC Glucose 189 H Calcium Blood Type A POSITIVE Antibody Screen Negative Crossmatch See Detail
[2021-07-26] MEDS: HYDROmorphone 1 MG/1 ML INJ IV PRN (15:37)
[2021-07-26] MEDS: ACETAMINOPHEN 325 MG TAB PO PRN (15:41)
[2021-07-27 00:55] LABS: Basophils % (Auto) 0.4 % (0.0-1.8); Eosinophils % (Auto) 0.4 % (0.0-4.3); Hemoglobin 6.8 gm/dl (11.8-15.2); Lymphocytes # (Auto) 1.6 K/mm3 (1.2-5.4); Lymphocytes % (Auto) 17.9 % (13.4-35.0); Mean Corpuscular HGB Conc 35 % (32-34); Mean Corpuscular Volume 84 fl (84-94); Monocytes % (Auto) 10.8 % (0.0-7.3); Platelet Count 158 K/mm3 (140-440); Red Blood Count 2.28 M/mm3 (3.65-5.03)
[2021-07-27 01:03] LABS: Hematocrit 19.2 % (35.5-45.6)
[2021-07-27] MEDS: PANTOPRAZOLE 80 MG in SODIUM CHLORIDE 0.9% 100 ML IV SCH ×2 (05:52→18:20)
[2021-07-27 06:01] LABS: Basophils % (Auto) 0.6 % (0.0-1.8); Eosinophils % (Auto) 0.5 % (0.0-4.3); Hemoglobin 8.1 gm/dl (11.8-15.2); Lymphocytes # (Auto) 1.5 K/mm3 (1.2-5.4); Lymphocytes % (Auto) 18.9 % (13.4-35.0); Mean Corpuscular HGB Conc 35 % (32-34); Mean Corpuscular Volume 84 fl (84-94); Monocytes # (Auto) 0.8 K/mm3 (0.0-0.8); Monocytes % (Auto) 9.5 % (0.0-7.3); Platelet Count 156 K/mm3 (140-440); Red Blood Count 2.74 M/mm3 (3.65-5.03); Red Cell Distribution Width 14.2 % (13.2-15.2)
--- NOTE | 2021-07-27 09:39 | Progress Note ---
Assessment and Plan Assessment and plan: Large duodenal bulb ulcer GI bleed. Hypertension Vascular dementia Cerebral atherosclerosis/history of CVA 07/25/2021. Patient underwent upper endoscopy which revealed a non-obstructing B ring in the lower esophagus. The stomach appeared normal. Gastric biopsies were obtained to evaluate for H pylori (given duodenal ulcer). There was a large (~1.5 to 2 cm), cratered ulcer in the posterior wall of the duodenal bulb with severely inflamed surround mucosa. There was oozing of blood at the mar gins of the ulcer. No obvious visible vessel was seen although full visualization of the ulcer was difficult due to the location. The areas of oozing was treated with epinephrine injection (3 cc total). There was no active bleeding seen at the end of the procedure. Continue to monitor H&H and tr ansfuse for hemoglobin less than 7. If patient rebleeds will likely need to have IR evaluation 07/26/2021. Patient denies any active bleeding, hematochezia or melena. However, patient with hemoglobin of 7.1. Also, given the size of the ulcer along with drop in hemoglobin, we will transfuse PRBCs for now. Continue to monitor for any rebleeding. GI following 07/27/2021. Evening lab check for CBC revealed hemoglobin of 6.8. Patient denies any active bleeding, hematochezia or melena. Patient completed second unit of PRBCs yesterday. Hemoglobin has improved to 8.1. We will continue to monitor for next 24 hours and recheck CBC in a.m. GI following History Interval history: No new issues overnight Hospitalist Physical - Constitutional Vitals: Temp Pulse Resp BP Pulse Ox 98.2 F 63 18 121/54 98 07/27/21 09:00 07/27/21 09:00 07/27/21 09:00 07/27/21 09:00 07/27/21 09:00 General appearance: Present: no acute distress - EENT Eyes: Present: PERRL, EOM intact ENT: hearing intact, clear oral mucosa, dentition normal - Neck Neck: Present: supple, normal ROM - Respiratory Respiratory effort: normal Respiratory: bilateral: CTA - Cardiovascular Rhythm: regular Heart Sounds: Present: S1 & S2. Absent: gallop, rub - Extremities Extremities: no ischemia, No edema, Full ROM - Abdominal General gastrointestinal: soft, non-tender, non-distended, normal bowel sounds - Integumentary Integumentary: Present: clear, warm, dry - Neurologic Neurologic: CNII-XII intact, moves all extremities Results - Labs CBC & Chem 7: 07/27/21 04:31 07/26/21 04:43 Labs: Laboratory Last Values WBC 8.0 K/mm3 (4.5-11.0) 07/27/21 04:31 RBC 2.74 M/mm3 (3.65-5.03) L 07/27/21 04:31 Hgb 8.1 gm/dl (11.8-15.2) L 07/27/21 04:31 Hct 23.0 % (35.5-45.6) L 07/27/21 04:31 MCV 84 fl (84-94) 07/27/21 04:31 MCH 30 pg (28-32) 07/27/21 04:31 MCHC 35 % (32-34) H 07/27/21 04:31 RDW 14.2 % (13.2-15.2) 07/27/21 04:31 Plt Count 156 K/mm3 (140-440) 07/27/21 04:31 Lymph % (Auto) 18.9 % (13.4-35.0) 07/27/21 04:31 [place] % (Auto) 9.5 % (0.0-7.3) H 07/27/21 04:31 Eos % (Auto) 0.5 % (0.0-4.3) 07/27/21 04:31 Baso % (Auto) 0.6 % (0.0-1.8) 07/27/21 04:31 Lymph # (Auto) 1.5 K/mm3 (1.2-5.4) 07/27/21 04:31 [place] # (Auto) 0.8 K/mm3 (0.0-0.8) 07/27/21 04:31 Eos # (Auto) 0.0 K/mm3 (0.0-0.4) 07/27/21 04:31 Baso # (Auto) 0.0 K/mm3 (0.0-0.1) 07/27/21 04:31 Seg Neutrophils % 70.5 % (40.0-70.0) H 07/27/21 04:31 Seg Neutrophils # 5.6 K/mm3 (1.8-7.7) 07/27/21 04:31 PT 13.8 Sec. (12.2-14.9) 07/24/21 12:16 INR 1.00 (0.87-1.13) 07/24/21 12:16 APTT 27.2 Sec. (24.2-36.6) 07/24/21 12:16 Sodium 140 mmol/L (137-145) 07/26/21 04:43 Potassium 4.1 mmol/L (3.6-5.0) 07/26/21 04:43 Chloride 111.8 mmol/L (98-107) H 07/26/21 04:43 Carbon Dioxide 23 mmol/L (22-30) 07/26/21 04:43 Anion Gap 9 mmol/L 07/26/21 04:43 BUN 44 mg/dL (9-20) H 07/26/21 04:43 Creatinine 1.7 mg/dL (0.8-1.3) H 07/26/21 04:43 Estimated GFR 49 ml/min 07/26/21 04:43 BUN/Creatinine Ratio 26 % 07/26/21 04:43 Glucose 172 mg/dL (75-100) H 07/26/21 04:43 POC Glucose 154 mg/dL (70-105) H 07/27/21 07:22 Calcium 8.3 mg/dL (8.4-10.2) L 07/26/21 04:43 Total Bilirubin 0.20 mg/dL (0.1-1.2) 07/24/21 12:16 Direct Bilirubin < 0.2 mg/dL (0-0.2) 07/24/21 12:16 Indirect Bilirubin 0.0 mg/dL 07/24/21 12:16 AST 10 units/L (5-40) 07/24/21 12:16 ALT 7 units/L (7-56) 07/24/21 12:16 Alkaline Phosphatase 50 units/L (35-129) 07/24/21 12:16 Total Protein 6.9 g/dL (6.3-8.2) 07/24/21 12:16 Albumin 3.7 g/dL (3.9-5) L 07/24/21 12:16 Albumin/Globulin Ratio 1.2 % 07/24/21 12:16 Blood Type A POSITIVE 07/26/21 10:19 Antibody Screen Negative 07/26/21 10:19 Crossmatch See Detail 07/26/21 10:19 Tam/IV: Voiding Method Incontinent Active Medications - Current Medications Current Medications: Generic Name Dose Route Start Last Admin Trade Name Freq PRN Reason Stop Dose Admin Acetaminophen 650 mg 07/24/21 13:45 07/26/21 15:41 Acetaminophen 325 Mg Tab PO 650 mg Q4H PRN Administration Pain MILD(1-3)/Fever >100.5/VERMA Albuterol 2.5 mg 07/24/21 13:45 Albuterol 2.5 Mg/3 Ml Nebu IH Q4HRT PRN Shortness Of Breath Hydromorphone HCl 0.5 mg 07/24/21 13:45 07/26/21 15:37 Hydromorphone 1 Mg/1 Ml Inj IV 0.5 mg Q23H PRN Administration Pain , Severe (7-10) Pantoprazole Sodium 80 mg/ 100 mls @ 10 mls/hr 07/24/21 14:00 07/27/21 05:52 Sodium Chloride IV 8 mg/hr DIRECT CHARAN 10 mls/hr Administration 8 MG/HR Sodium Chloride 1,000 mls @ 75 mls/hr 07/24/21 14:00 07/26/21 11:07 Nacl 0.9% 1000 Ml IV 75 mls/hr DIRECT CHARAN Administration Ondansetron HCl 4 mg 07/24/21 13:45 Ondansetron 4 Mg/2 Ml Inj IV Q8H PRN Nausea And Vomiting Oxycodone/Acetaminophen 1 tab 07/24/21 13:45 Oxycodone /Acetaminophen 5-325mg Tab PO Q12H PRN Pain, Moderate (4-6) Sodium Chloride 10 ml 07/24/21 22:00 07/26/21 22:00 Sodium Chloride 0.9% 10 Ml Flush Syringe IV 10 ml BID CHARAN Administration Sodium Chloride 10 ml 07/24/21 13:45 Sodium Chloride 0.9% 10 Ml Flush Syringe IV PRN PRN LINE FLUSH
--- NOTE | 2021-07-27 15:46 | Gastroenterology Progress Note ---
Assessment and Plan UGI bleed/duodenal ulcer - no gross/overt bleeding since endoscopy. appropriate response in H/H to blood transfusion. okay to resume po intake; cont PPI IV and transition to BID dosing tomorrow if no new changes. Subjective Date of service: 07/27/21 Principal diagnosis: melena Interval history: no overt bleeding since endoscopy; noted drop in H/H with appropriate response to blood transfusion Objective - Exam Narrative Exam: gen: nad abd: soft, nt, nd - Constitutional Vitals: Temp Pulse Resp BP Pulse Ox 98.5 F 52 L 18 162/65 98 07/27/21 11:51 07/27/21 12:28 07/27/21 13:30 07/27/21 11:51 07/27/21 13:30 - Labs CBC & Chem 7: 07/27/21 04:31 07/26/21 04:43 Labs: Laboratory Results - last 24 hr 07/26/21 07/26/21 07/26/21 10:19 20:49 23:31 WBC 9.1 RBC 2.28 L Hgb 6.8 L Hct 19.2 L* MCV 84 MCH 30 MCHC 35 H RDW 14.0 Plt Count 158 Lymph % (Auto) 17.9 [place] % (Auto) 10.8 H Eos % (Auto) 0.4 Baso % (Auto) 0.4 Lymph # (Auto) 1.6 [place] # (Auto) 1.0 H Eos # (Auto) 0.0 Baso # (Auto) 0.0 Seg Neutrophils % 70.5 H Seg Neutrophils # 6.4 POC Glucose 148 H Coronavirus (PCR) Blood Type A POSITIVE Antibody Screen Negative Crossmatch See Detail 07/27/21 07/27/21 07/27/21 04:31 07:22 11:55 WBC 8.0 RBC 2.74 L Hgb 8.1 L Hct 23.0 L MCV 84 MCH 30 MCHC 35 H RDW 14.2 Plt Count 156 Lymph % (Auto) 18.9 [place] % (Auto) 9.5 H Eos % (Auto) 0.5 Baso % (Auto) 0.6 Lymph # (Auto) 1.5 [place] # (Auto) 0.8 Eos # (Auto) 0.0 Baso # (Auto) 0.0 Seg Neutrophils % 70.5 H Seg Neutrophils # 5.6 POC Glucose 154 H 200 H Coronavirus (PCR) Blood Type Antibody Screen Crossmatch 07/27/21 Unknown WBC RBC Hgb Hct MCV MCH MCHC RDW Plt Count Lymph % (Auto) [place] % (Auto) Eos % (Auto) Baso % (Auto) Lymph # (Auto) [place] # (Auto) Eos # (Auto) Baso # (Auto) Seg Neutrophils % Seg Neutrophils # POC Glucose Coronavirus (PCR) Negative Blood Type Antibody Screen Crossmatch
[2021-07-28] MEDS: PANTOPRAZOLE 80 MG in SODIUM CHLORIDE 0.9% 100 ML IV SCH (05:19)
[2021-07-28 06:15] LABS: Hemoglobin 7.9 gm/dl (11.8-15.2); Mean Corpuscular HGB Conc 34 % (32-34); Mean Corpuscular Volume 86 fl (84-94); Platelet Count 179 K/mm3 (140-440); Red Blood Count 2.66 M/mm3 (3.65-5.03)
[2021-07-28 06:17] LABS: Red Cell Distribution Width 25.1 % (13.2-15.2)
[2021-07-28 06:24] LABS: Calcium 8.7 mg/dL (8.4-10.2)
--- NOTE | 2021-07-28 08:37 | Progress Note ---
Assessment and Plan Assessment and plan: Large duodenal bulb ulcer GI bleed. Acute kidney injury. Present on admission. Etiology secondary to vasomotor nephropathy. Hypertension Vascular dementia Cerebral atherosclerosis/history of CVA 07/25/2021. Patient underwent upper endoscopy which revealed a non-obstructing B ring in the lower esophagus. The stomach appeared normal. Gastric biopsies were obtained to evaluate for H pylori (given duodenal ulcer). There was a large (~1.5 to 2 cm), cratered ulcer in the posterior wall of the duodenal bulb with severely inflamed surround mucosa. There was oozing of blood at the margins of the ulcer. No obvious visible vessel was seen although full visualization of the ulcer was difficult due to the location. The areas of oozing was treated with epinephrine injection (3 cc total). There was no active bleeding seen at the end of the procedure. Continue to monitor H&H and transfuse for hemoglobin less than 7. If patient rebleeds will likely need to have IR evaluation 07/26/2021. Patient denies any active bleeding, hematochezia or melena. However, patient with hemoglobin of 7.1. Also, given the size of the ulcer along with drop in hemoglobin, we will transfuse PRBCs for now. Continue to monitor for any rebleeding. GI following 07/27/2021. Evening lab check for CBC revealed hemoglobin of 6.8. Patient denies any active bleeding, hematochezia or melena. Patient completed second unit of PRBCs yesterday. Hemoglobin has improved to 8.1. We will continue to monitor for next 24 hours and recheck CBC in a.m. GI following 07/28/2021. Hemoglobin remained stable at 7.9. No evidence of active bleeding, hematochezia or melena. Continue to advance diet as tolerated. We will start IV fluid hydration x1 L and recheck creatinine. Anticipate discharge either later today or in a.m. per GI recommendations. History Interval history: No new issues overnight Hospitalist Physical - Constitutional Vitals: Temp Pulse Resp BP Pulse Ox 97.6 F 58 L 18 160/63 100 07/28/21 05:11 07/28/21 05:11 07/28/21 05:11 07/28/21 05:11 07/28/21 05:11 General appearance: Present: no acute distress - EENT Eyes: Present: PERRL, EOM intact ENT: hearing intact, clear oral mucosa, dentition normal - Neck Neck: Present: supple, normal ROM - Respiratory Respiratory effort: normal Respiratory: bilateral: CTA - Cardiovascular Rhythm: regular Heart Sounds: Present: S1 & S2. Absent: gallop, rub - Extremities Extremities: no ischemia, No edema, Full ROM - Abdominal General gastrointestinal: soft, non-tender, non-distended, normal bowel sounds - Integumentary Integumentary: Present: clear, warm, dry - Neurologic Neurologic: CNII-XII intact, moves all extremities Results - Labs CBC & Chem 7: 07/28/21 04:50 07/28/21 04:50 Labs: Laboratory Last Values WBC 8.3 K/mm3 (4.5-11.0) 07/28/21 04:50 RBC 2.66 M/mm3 (3.65-5.03) L 07/28/21 04:50 Hgb 7.9 gm/dl (11.8-15.2) L 07/28/21 04:50 Hct 23.0 % (35.5-45.6) L 07/28/21 04:50 MCV 86 fl (84-94) 07/28/21 04:50 MCH 30 pg (28-32) 07/28/21 04:50 MCHC 34 % (32-34) 07/28/21 04:50 RDW 25.1 % (13.2-15.2) H 07/28/21 04:50 Plt Count 179 K/mm3 (140-440) 07/28/21 04:50 Lymph % (Auto) 18.9 % (13.4-35.0) 07/27/21 04:31 [place] % (Auto) 9.5 % (0.0-7.3) H 07/27/21 04:31 Eos % (Auto) 0.5 % (0.0-4.3) 07/27/21 04:31 Baso % (Auto) 0.6 % (0.0-1.8) 07/27/21 04:31 Lymph # (Auto) 1.5 K/mm3 (1.2-5.4) 07/27/21 04:31 [place] # (Auto) 0.8 K/mm3 (0.0-0.8) 07/27/21 04:31 Eos # (Auto) 0.0 K/mm3 (0.0-0.4) 07/27/21 04:31 Baso # (Auto) 0.0 K/mm3 (0.0-0.1) 07/27/21 04:31 Seg Neutrophils % 70.5 % (40.0-70.0) H 07/27/21 04:31 Seg Neutrophils # 5.6 K/mm3 (1.8-7.7) 07/27/21 04:31 PT 13.8 Sec. (12.2-14.9) 07/24/21 12:16 INR 1.00 (0.87-1.13) 07/24/21 12:16 APTT 27.2 Sec. (24.2-36.6) 07/24/21 12:16 Sodium 145 mmol/L (137-145) 07/28/21 04:50 Potassium 4.4 mmol/L (3.6-5.0) 07/28/21 04:50 Chloride 114.2 mmol/L (98-107) H 07/28/21 04:50 Carbon Dioxide 16 mmol/L (22-30) L D 07/28/21 04:50 Anion Gap 19 mmol/L 07/28/21 04:50 BUN 38 mg/dL (9-20) H 07/28/21 04:50 Creatinine 1.7 mg/dL (0.8-1.3) H 07/28/21 04:50 Estimated GFR 49 ml/min 07/28/21 04:50 BUN/Creatinine Ratio 22 % 07/28/21 04:50 Glucose 173 mg/dL (75-100) H 07/28/21 04:50 POC Glucose 221 mg/dL (70-105) H 07/27/21 17:04 Calcium 8.7 mg/dL (8.4-10.2) 07/28/21 04:50 Total Bilirubin 0.20 mg/dL (0.1-1.2) 07/24/21 12:16 Direct Bilirubin < 0.2 mg/dL (0-0.2) 07/24/21 12:16 Indirect Bilirubin 0.0 mg/dL 07/24/21 12:16 AST 10 units/L (5-40) 07/24/21 12:16 ALT 7 units/L (7-56) 07/24/21 12:16 Alkaline Phosphatase 50 units/L (35-129) 07/24/21 12:16 Total Protein 6.9 g/dL (6.3-8.2) 07/24/21 12:16 Albumin 3.7 g/dL (3.9-5) L 07/24/21 12:16 Albumin/Globulin Ratio 1.2 % 07/24/21 12:16 Coronavirus (PCR) Negative (Negative) 07/27/21 Unknown Blood Type A POSITIVE 07/26/21 10:19 Antibody Screen Negative 07/26/21 10:19 Crossmatch See Detail 07/26/21 10:19 Tam/IV: Voiding Method Urinal Active Medications - Current Medications Current Medications: Generic Name Dose Route Start Last Admin Trade Name Freq PRN Reason Stop Dose Admin Acetaminophen 650 mg 07/24/21 13:45 07/26/21 15:41 Acetaminophen 325 Mg Tab PO 650 mg Q4H PRN Administration Pain MILD(1-3)/Fever >100.5/VERMA Albuterol 2.5 mg 07/24/21 13:45 Albuterol 2.5 Mg/3 Ml Nebu IH Q4HRT PRN Shortness Of Breath Hydromorphone HCl 0.5 mg 07/24/21 13:45 07/26/21 15:37 Hydromorphone 1 Mg/1 Ml Inj IV 0.5 mg Q23H PRN Administration Pain , Severe (7-10) Pantoprazole Sodium 80 mg/ 100 mls @ 10 mls/hr 07/24/21 14:00 07/28/21 05:19 Sodium Chloride IV 8 mg/hr DIRECT CHARAN 10 mls/hr Administration 8 MG/HR Sodium Chloride 1,000 mls @ 75 mls/hr 07/24/21 14:00 07/26/21 11:07 Nacl 0.9% 1000 Ml IV 75 mls/hr DIRECT CHARAN Administration Ondansetron HCl 4 mg 07/24/21 13:45 Ondansetron 4 Mg/2 Ml Inj IV Q8H PRN Nausea And Vomiting Oxycodone/Acetaminophen 1 tab 07/24/21 13:45 Oxycodone /Acetaminophen 5-325mg Tab PO Q12H PRN Pain, Moderate (4-6) Sodium Chloride 10 ml 07/24/21 22:00 07/27/21 21:45 Sodium Chloride 0.9% 10 Ml Flush Syringe IV 10 ml BID CHARAN Administration Sodium Chloride 10 ml 07/24/21 13:45 Sodium Chloride 0.9% 10 Ml Flush Syringe IV PRN PRN LINE FLUSH
[2021-07-28 08:44] LABS: Total Cells Counted 100
[2021-07-28 08:45] LABS: Anisocytosis 1+; Platelet Estimate Consistent w Auto
--- NOTE | 2021-07-28 10:35 | Gastroenterology Progress Note ---
Assessment and Plan 1. Upper GI bleed 2/2 Duodenal bulb ulcer 2. H pylori from gastric biopsies 3. intestinal metaplasia of gastric mucosa -stable H/H, clinically doing well w/o overt bleeding for a few days. advance diet, cont PPI bid dosing, treat for H pylori. f/u in gi clinic in 2-3 weeks and should have repeat upper endoscopy in 1 year for surveillance of gastric IM. will sign off, please call as needed Subjective Date of service: 07/28/21 Principal diagnosis: melena Interval history: pt doing well, tolerating po, no overt gi bleeding for several days with stable labs. Objective - Constitutional Vitals: Temp Pulse Resp BP Pulse Ox 97.8 F 63 18 157/69 100 07/28/21 08:15 07/28/21 08:15 07/28/21 08:15 07/28/21 08:15 07/28/21 08:15 General appearance: no acute distress - Respiratory Respiratory effort: normal Respiratory: bilateral: CTA - Cardiovascular Rhythm: regular Heart Sounds: Present: S1 & S2 - Gastrointestinal General gastrointestinal: Present: soft, non-tender, non-distended - Labs CBC & Chem 7: 07/28/21 04:50 07/28/21 04:50 Labs: Laboratory Results - last 24 hr 07/27/21 07/27/21 07/27/21 11:55 17:04 Unknown WBC RBC Hgb Hct MCV MCH MCHC RDW Plt Count Add Manual Diff Total Counted Seg Neuts % (Manual) Lymphocytes % (Manual) Monocytes % (Manual) Nucleated RBC % Seg Neutrophils # Man Band Neutrophils # Lymphocytes # (Manual) Abs React Lymphs (Man) Monocytes # (Manual) Eosinophils # (Manual) Basophils # (Manual) Metamyelocytes # Myelocytes # Promyelocytes # Blast Cells # WBC Morphology Hypersegmented Neuts Hyposegmented Neuts Hypogranular Neuts Smudge Cells Toxic Granulation Toxic Vacuolation Dohle Bodies Pelger-Huet Anomaly Skylar Rods Platelet Estimate Clumped Platelets Plt Clumps, EDTA Large Platelets Giant Platelets Platelet Satelliting Plt Morphology Comment RBC Morphology Dimorphic RBCs Polychromasia Hypochromasia Poikilocytosis Anisocytosis Microcytosis Macrocytosis Spherocytes Pappenheimer Bodies Sickle Cells Target Cells Tear Drop Cells Ovalocytes Helmet Cells [place] Bodies [place] Rings [place] Cells Bite Cells Crenated Cell Elliptocytes Acanthocytes (Spur) Rouleaux Hemoglobin C Crystals Schistocytes Malaria parasites [place]grito Bodies Hem Pathologist Commnt Sodium Potassium Chloride Carbon Dioxide Anion Gap BUN Creatinine Estimated GFR BUN/Creatinine Ratio Glucose POC Glucose 200 H 221 H Calcium Coronavirus (PCR) Negative 07/28/21 07/28/21 04:50 04:50 WBC 8.3 RBC 2.66 L Hgb 7.9 L Hct 23.0 L MCV 86 MCH 30 MCHC 34 RDW 25.1 H Plt Count 179 Add Manual Diff Complete Total Counted 100 Seg Neuts % (Manual) 68.0 Lymphocytes % (Manual) 25.0 Monocytes % (Manual) 7.0 Nucleated RBC % Not Reportable Seg Neutrophils # Man 5.6 Band Neutrophils # 0.0 Lymphocytes # (Manual) 2.1 Abs React Lymphs (Man) 0.0 Monocytes # (Manual) 0.6 Eosinophils # (Manual) 0.0 Basophils # (Manual) 0.0 Metamyelocytes # 0.0 Myelocytes # 0.0 Promyelocytes # 0.0 Blast Cells # 0.0 WBC Morphology Not Reportable Hypersegmented Neuts Not Reportable Hyposegmented Neuts Not Reportable Hypogranular Neuts Not Reportable Smudge Cells Not Reportable Toxic Granulation Not Reportable Toxic Vacuolation Not Reportable Dohle Bodies Not Reportable Pelger-Huet Anomaly Not Reportable Skylar Rods Not Reportable Platelet Estimate Consistent w auto Clumped Platelets Not Reportable Plt Clumps, EDTA Not Reportable Large Platelets Not Reportable Giant Platelets Not Reportable Platelet Satelliting Not Reportable Plt Morphology Comment Not Reportable RBC Morphology Not Reportable Dimorphic RBCs Not Reportable Polychromasia Not Reportable Hypochromasia Not Reportable Poikilocytosis Not Reportable Anisocytosis 1+ Microcytosis Not Reportable Macrocytosis Not Reportable Spherocytes Not Reportable Pappenheimer Bodies Not Reportable Sickle Cells Not Reportable Target Cells Not Reportable Tear Drop Cells Not Reportable Ovalocytes Not Reportable Helmet Cells Not Reportable [place] Bodies Not Reportable [place] Rings Not Reportable [place] Cells Not Reportable Bite Cells Not Reportable Crenated Cell Not Reportable Elliptocytes Not Reportable Acanthocytes (Spur) Not Reportable Rouleaux Not Reportable Hemoglobin C Crystals Not Reportable Schistocytes Not Reportable Malaria parasites Not Reportable [place]grito Bodies Not Reportable Hem Pathologist Commnt No Sodium 145 Potassium 4.4 Chloride 114.2 H Carbon Dioxide 16 L D Anion Gap 19 BUN 38 H Creatinine 1.7 H Estimated GFR 49 BUN/Creatinine Ratio 22 Glucose 173 H POC Glucose Calcium 8.7 Coronavirus (PCR)
[2021-07-28] MEDS: amLODIPine 10 MG TAB PO SCH (18:14)
[2021-07-28] MEDS: SODIUM CHLORIDE 0.9% 1000 ML 1,000 ML IV SCH (18:14)
[2021-07-28] MEDS: METOPROLOL SUCCINATE XL 25 MG TAB PO SCH (22:20)
[2021-07-28] MEDS: PANTOPRAZOLE 40 MG INJ IV SCH (22:25)
[2021-07-29] MEDS: SODIUM CHLORIDE 0.9% 1000 ML 1,000 ML IV SCH (01:31)
[2021-07-29 06:25] LABS: Basophils # (Auto) 0.1 K/mm3 (0.0-0.1); Basophils % (Auto) 0.5 % (0.0-1.8); Eosinophils # (Auto) 0.2 K/mm3 (0.0-0.4); Eosinophils % (Auto) 1.8 % (0.0-4.3); Hematocrit 23.2 % (35.5-45.6); Hemoglobin 8.2 gm/dl (11.8-15.2); Lymphocytes # (Auto) 1.8 K/mm3 (1.2-5.4); Lymphocytes % (Auto) 19.5 % (13.4-35.0); Mean Corpuscular HGB Conc 35 % (32-34); Mean Corpuscular Volume 85 fl (84-94); Monocytes # (Auto) 0.8 K/mm3 (0.0-0.8); Monocytes % (Auto) 8.9 % (0.0-7.3); Platelet Count 211 K/mm3 (140-440); Red Blood Count 2.74 M/mm3 (3.65-5.03); Red Cell Distribution Width 14.2 % (13.2-15.2)
[2021-07-29 06:45] LABS: BUN/Creatinine Ratio 15; Blood Urea Nitrogen 20 mg/dL (9-20); Calcium 8.5 mg/dL (8.4-10.2); Hemolysis Index 2
[2021-07-29] MEDS: amLODIPine 10 MG TAB PO SCH (09:19)
[2021-07-29] MEDS: PANTOPRAZOLE 40 MG INJ IV SCH (09:20)
[2021-07-29] MEDS: METOPROLOL SUCCINATE XL 25 MG TAB PO SCH (09:20)
--- NOTE | 2021-07-29 09:25 | Progress Note ---
Assessment and Plan Assessment and plan: Large duodenal bulb ulcer GI bleed. Acute kidney injury. Present on admission. Etiology secondary to vasomotor nephropathy. Hypertension Vascular dementia Cerebral atherosclerosis/history of CVA 07/25/2021. Patient underwent upper endoscopy which revealed a non-obstructing B ring in the lower esophagus. The stomach appeared normal. Gastric biopsies were obtained to evaluate for H pylori (given duodenal ulcer). There was a large (~1.5 to 2 cm), cratered ulcer in the posterior wall of the duodenal bulb with severely inflamed surround mucosa. There was oozing of blood at the margins of the ulcer. No obvious visible vessel was seen although full visualization of the ulcer was difficult due to the location. The areas of oozing was treated with epinephrine injection (3 cc total). There was no active bleeding seen at the end of the procedure. Continue to monitor H&H and transfuse for hemoglobin less than 7. If patient rebleeds will likely need to have IR evaluation 07/26/2021. Patient denies any active bleeding, hematochezia or melena. However, patient with hemoglobin of 7.1. Also, given the size of the ulcer along with drop in hemoglobin, we will transfuse PRBCs for now. Continue to monitor for any rebleeding. GI following 07/27/2021. Evening lab check for CBC revealed hemoglobin of 6.8. Patient denies any active bleeding, hematochezia or melena. Patient completed second unit of PRBCs yesterday. Hemoglobin has improved to 8.1. We will continue to monitor for next 24 hours and recheck CBC in a.m. GI following 07/28/2021. Hemoglobin remained stable at 7.9. No evidence of active bleeding, hematochezia or melena. Continue to advance diet as tolerated. We will start IV fluid hydration x1 L and recheck creatinine. Anticipate discharge either later today or in a.m. per GI recommendations. 07/29/2021. Patient's hemoglobin is stable at 8.2. No evidence of active bleeding, hematochezia or melena. Continue full diet. Creatinine has improved back to baseline of 1.3. We will obtain Covid testing for discharge back to SNF. History Interval history: No new issues overnight Hospitalist Physical - Constitutional Vitals: Temp Pulse Resp BP Pulse Ox 98.3 F 83 18 155/75 100 07/29/21 08:28 07/29/21 09:20 07/29/21 08:28 07/29/21 09:19 07/29/21 08:28 General appearance: Present: no acute distress - EENT Eyes: Present: PERRL, EOM intact ENT: hearing intact, clear oral mucosa, dentition normal - Neck Neck: Present: supple, normal ROM - Respiratory Respiratory effort: normal Respiratory: bilateral: CTA - Cardiovascular Rhythm: regular Heart Sounds: Present: S1 & S2. Absent: gallop, rub - Extremities Extremities: no ischemia, No edema, Full ROM - Abdominal General gastrointestinal: soft, non-tender, non-distended, normal bowel sounds - Integumentary Integumentary: Present: clear, warm, dry - Neurologic Neurologic: CNII-XII intact, moves all extremities Results - Labs CBC & Chem 7: 07/29/21 05:17 07/29/21 05:17 Labs: Laboratory Last Values WBC 9.2 K/mm3 (4.5-11.0) 07/29/21 05:17 RBC 2.74 M/mm3 (3.65-5.03) L 07/29/21 05:17 Hgb 8.2 gm/dl (11.8-15.2) L 07/29/21 05:17 Hct 23.2 % (35.5-45.6) L 07/29/21 05:17 MCV 85 fl (84-94) 07/29/21 05:17 MCH 30 pg (28-32) 07/29/21 05:17 MCHC 35 % (32-34) H 07/29/21 05:17 RDW 14.2 % (13.2-15.2) 07/29/21 05:17 Plt Count 211 K/mm3 (140-440) 07/29/21 05:17 Lymph % (Auto) 19.5 % (13.4-35.0) 07/29/21 05:17 [place] % (Auto) 8.9 % (0.0-7.3) H 07/29/21 05:17 Eos % (Auto) 1.8 % (0.0-4.3) 07/29/21 05:17 Baso % (Auto) 0.5 % (0.0-1.8) 07/29/21 05:17 Lymph # (Auto) 1.8 K/mm3 (1.2-5.4) 07/29/21 05:17 [place] # (Auto) 0.8 K/mm3 (0.0-0.8) 07/29/21 05:17 Eos # (Auto) 0.2 K/mm3 (0.0-0.4) 07/29/21 05:17 Baso # (Auto) 0.1 K/mm3 (0.0-0.1) 07/29/21 05:17 Add Manual Diff Complete 07/28/21 04:50 Total Counted 100 07/28/21 04:50 Seg Neutrophils % 69.3 % (40.0-70.0) 07/29/21 05:17 Seg Neuts % (Manual) 68.0 % (40.0-70.0) 07/28/21 04:50 Lymphocytes % (Manual) 25.0 % (13.4-35.0) 07/28/21 04:50 Monocytes % (Manual) 7.0 % (0.0-7.3) 07/28/21 04:50 Nucleated RBC % Not Reportable 07/28/21 04:50 Seg Neutrophils # 6.3 K/mm3 (1.8-7.7) 07/29/21 05:17 Seg Neutrophils # Man 5.6 K/mm3 (1.8-7.7) 07/28/21 04:50 Band Neutrophils # 0.0 K/mm3 07/28/21 04:50 Lymphocytes # (Manual) 2.1 K/mm3 (1.2-5.4) 07/28/21 04:50 Abs React Lymphs (Man) 0.0 K/mm3 07/28/21 04:50 Monocytes # (Manual) 0.6 K/mm3 (0.0-0.8) 07/28/21 04:50 Eosinophils # (Manual) 0.0 K/mm3 (0.0-0.4) 07/28/21 04:50 Basophils # (Manual) 0.0 K/mm3 (0.0-0.1) 07/28/21 04:50 Metamyelocytes # 0.0 K/mm3 07/28/21 04:50 Myelocytes # 0.0 K/mm3 07/28/21 04:50 Promyelocytes # 0.0 K/mm3 07/28/21 04:50 Blast Cells # 0.0 K/mm3 07/28/21 04:50 WBC Morphology Not Reportable 07/28/21 04:50 Hypersegmented Neuts Not Reportable 07/28/21 04:50 Hyposegmented Neuts Not Reportable 07/28/21 04:50 Hypogranular Neuts Not Reportable 07/28/21 04:50 Smudge Cells Not Reportable 07/28/21 04:50 Toxic Granulation Not Reportable 07/28/21 04:50 Toxic Vacuolation Not Reportable 07/28/21 04:50 Dohle Bodies Not Reportable 07/28/21 04:50 Pelger-Huet Anomaly Not Reportable 07/28/21 04:50 Skylar Rods Not Reportable 07/28/21 04:50 Platelet Estimate Consistent w auto 07/28/21 04:50 Clumped Platelets Not Reportable 07/28/21 04:50 Plt Clumps, EDTA Not Reportable 07/28/21 04:50 Large Platelets Not Reportable 07/28/21 04:50 Giant Platelets Not Reportable 07/28/21 04:50 Platelet Satelliting Not Reportable 07/28/21 04:50 Plt Morphology Comment Not Reportable 07/28/21 04:50 RBC Morphology Not Reportable 07/28/21 04:50 Dimorphic RBCs Not Reportable 07/28/21 04:50 Polychromasia Not Reportable 07/28/21 04:50 Hypochromasia Not Reportable 07/28/21 04:50 Poikilocytosis Not Reportable 07/28/21 04:50 Anisocytosis 1+ 07/28/21 04:50 Microcytosis Not Reportable 07/28/21 04:50 Macrocytosis Not Reportable 07/28/21 04:50 Spherocytes Not Reportable 07/28/21 04:50 Pappenheimer Bodies Not Reportable 07/28/21 04:50 Sickle Cells Not Reportable 07/28/21 04:50 Target Cells Not Reportable 07/28/21 04:50 Tear Drop Cells Not Reportable 07/28/21 04:50 Ovalocytes Not Reportable 07/28/21 04:50 Helmet Cells Not Reportable 07/28/21 04:50 [place] Bodies Not Reportable 07/28/21 04:50 [place] Rings Not Reportable 07/28/21 04:50 [place] Cells Not Reportable 07/28/21 04:50 Bite Cells Not Reportable 07/28/21 04:50 Crenated Cell Not Reportable 07/28/21 04:50 Elliptocytes Not Reportable 07/28/21 04:50 Acanthocytes (Spur) Not Reportable 07/28/21 04:50 Rouleaux Not Reportable 07/28/21 04:50 Hemoglobin C Crystals Not Reportable 07/28/21 04:50 Schistocytes Not Reportable 07/28/21 04:50 Malaria parasites Not Reportable 07/28/21 04:50 [place] Bodies Not Reportable 07/28/21 04:50 Hem Pathologist Commnt No 07/28/21 04:50 PT 13.8 Sec. (12.2-14.9) 07/24/21 12:16 INR 1.00 (0.87-1.13) 07/24/21 12:16 APTT 27.2 Sec. (24.2-36.6) 07/24/21 12:16 Sodium 143 mmol/L (137-145) 07/29/21 05:17 Potassium 4.2 mmol/L (3.6-5.0) 07/29/21 05:17 Chloride 111.2 mmol/L (98-107) H 07/29/21 05:17 Carbon Dioxide 20 mmol/L (22-30) L 07/29/21 05:17 Anion Gap 16 mmol/L 07/29/21 05:17 BUN 20 mg/dL (9-20) 07/29/21 05:17 Creatinine 1.3 mg/dL (0.8-1.3) 07/29/21 05:17 Estimated GFR > 60 ml/min 07/29/21 05:17 BUN/Creatinine Ratio 15 % 07/29/21 05:17 Glucose 209 mg/dL (75-100) H 07/29/21 05:17 POC Glucose 221 mg/dL (70-105) H 07/27/21 17:04 Calcium 8.5 mg/dL (8.4-10.2) 07/29/21 05:17 Total Bilirubin 0.20 mg/dL (0.1-1.2) 07/24/21 12:16 Direct Bilirubin < 0.2 mg/dL (0-0.2) 07/24/21 12:16 Indirect Bilirubin 0.0 mg/dL 07/24/21 12:16 AST 10 units/L (5-40) 07/24/21 12:16 ALT 7 units/L (7-56) 07/24/21 12:16 Alkaline Phosphatase 50 units/L (35-129) 07/24/21 12:16 Total Protein 6.9 g/dL (6.3-8.2) 07/24/21 12:16 Albumin 3.7 g/dL (3.9-5) L 07/24/21 12:16 Albumin/Globulin Ratio 1.2 % 07/24/21 12:16 Coronavirus (PCR) Negative (Negative) 07/27/21 Unknown Blood Type A POSITIVE 07/26/21 10:19 Antibody Screen Negative 07/26/21 10:19 Crossmatch See Detail 07/26/21 10:19 Tam/IV: Voiding Method Urinal Active Medications - Current Medications Current Medications: Generic Name Dose Route Start Last Admin Trade Name Freq PRN Reason Stop Dose Admin Acetaminophen 650 mg 07/24/21 13:45 07/26/21 15:41 Acetaminophen 325 Mg Tab PO 650 mg Q4H PRN Administration Pain MILD(1-3)/Fever >100.5/VERMA Albuterol 2.5 mg 07/24/21 13:45 Albuterol 2.5 Mg/3 Ml Nebu IH Q4HRT PRN Shortness Of Breath Amlodipine Besylate 10 mg 07/28/21 18:00 07/29/21 09:19 Amlodipine 10 Mg Tab PO 10 mg QDAY CHARAN Administration Hydromorphone HCl 0.5 mg 07/24/21 13:45 07/26/21 15:37 Hydromorphone 1 Mg/1 Ml Inj IV 0.5 mg Q23H PRN Administration Pain , Severe (7-10) Sodium Chloride 1,000 mls @ 75 mls/hr 07/24/21 14:00 07/29/21 01:31 Nacl 0.9% 1000 Ml IV 75 mls/hr DIRECT CHARAN Administration Metoprolol Succinate 25 mg 07/28/21 20:00 07/29/21 09:20 Metoprolol Succinate Xl 25 Mg Tab PO 25 mg QDAY CHARAN Administration Ondansetron HCl 4 mg 07/24/21 13:45 Ondansetron 4 Mg/2 Ml Inj IV Q8H PRN Nausea And Vomiting Oxycodone/Acetaminophen 1 tab 07/24/21 13:45 Oxycodone /Acetaminophen 5-325mg Tab PO Q12H PRN Pain, Moderate (4-6) Pantoprazole Sodium 40 mg 07/28/21 22:00 07/29/21 09:20 Pantoprazole 40 Mg Inj IV 40 mg BID CHARAN Administration Sodium Chloride 10 ml 07/24/21 22:00 07/29/21 09:20 Sodium Chloride 0.9% 10 Ml Flush Syringe IV 10 ml BID CHARAN Administration Sodium Chloride 10 ml 07/24/21 13:45 Sodium Chloride 0.9% 10 Ml Flush Syringe IV PRN PRN LINE FLUSH
[2021-07-29] MEDS: PANTOPRAZOLE 40 MG TAB PO SCH (17:12)
[2021-07-29] MEDS: oxyCODONE /ACETAMINOPHEN 5-325MG TAB PO PRN (17:12)
[2021-07-30] MEDS: SODIUM CHLORIDE 0.9% 1000 ML 1,000 ML IV SCH ×2 (04:42→18:05)
--- NOTE | 2021-07-30 08:47 | Progress Note ---
Assessment and Plan Assessment and plan: Large duodenal bulb ulcer GI bleed. Acute kidney injury. Present on admission. Etiology secondary to vasomotor nephropathy. Hypertension Vascular dementia Cerebral atherosclerosis/history of CVA 07/25/2021. Patient underwent upper endoscopy which revealed a non-obstructing B ring in the lower esophagus. The stomach appeared normal. Gastric biopsies were obtained to evaluate for H pylori (given duodenal ulcer). There was a large (~1.5 to 2 cm), cratered ulcer in the posterior wall of the duodenal bulb with severely inflamed surround mucosa. There was oozing of blood at the margins of the ulcer. No obvious visible vessel was seen although full visualization of the ulcer was difficult due to the location. The areas of oozing was treated with epinephrine injection (3 cc total). There was no active bleeding seen at the end of the procedure. Continue to monitor H&H and transfuse for hemoglobin less than 7. If patient rebleeds will likely need to have IR evaluation 07/26/2021. Patient denies any active bleeding, hematochezia or melena. However, patient with hemoglobin of 7.1. Also, given the size of the ulcer along with drop in hemoglobin, we will transfuse PRBCs for now. Continue to monitor for any rebleeding. GI following 07/27/2021. Evening lab check for CBC revealed hemoglobin of 6.8. Patient denies any active bleeding, hematochezia or melena. Patient completed second unit of PRBCs yesterday. Hemoglobin has improved to 8.1. We will continue to monitor for next 24 hours and recheck CBC in a.m. GI following 07/28/2021. Hemoglobin remained stable at 7.9. No evidence of active bleeding, hematochezia or melena. Continue to advance diet as tolerated. We will start IV fluid hydration x1 L and recheck creatinine. Anticipate discharge either later today or in a.m. per GI recommendations. 07/29/2021. Patient's hemoglobin is stable at 8.2. No evidence of active bleeding, hematochezia or melena. Continue full diet. Creatinine has improved back to baseline of 1.3. We will obtain Covid testing for discharge back to [facility]. 07/30/2021. Follow-up CBC to ensure that hemoglobin is stable. No evidence of active bleeding, hematochezia or melena. Continue full diet. Creatinine has improved back to baseline of 1.3. Covid testing is negative to return back to [facility]. Anticipate discharge later today or in a.m. History Interval history: No new issues overnight Hospitalist Physical - Constitutional Vitals: Temp Pulse Resp BP Pulse Ox 98.8 F 64 18 157/59 96 07/30/21 08:04 07/30/21 08:04 07/30/21 08:04 07/30/21 08:04 07/30/21 08:04 General appearance: Present: no acute distress - EENT Eyes: Present: PERRL, EOM intact ENT: hearing intact, clear oral mucosa, dentition normal - Neck Neck: Present: supple, normal ROM - Respiratory Respiratory effort: normal Respiratory: bilateral: CTA - Cardiovascular Rhythm: regular Heart Sounds: Present: S1 & S2. Absent: gallop, rub - Extremities Extremities: no ischemia, No edema, Full ROM - Abdominal General gastrointestinal: soft, non-tender, non-distended, normal bowel sounds - Integumentary Integumentary: Present: clear, warm, dry - Neurologic Neurologic: CNII-XII intact, moves all extremities Results - Labs CBC & Chem 7: 07/29/21 05:17 07/29/21 05:17 Labs: Laboratory Last Values WBC 9.2 K/mm3 (4.5-11.0) 07/29/21 05:17 RBC 2.74 M/mm3 (3.65-5.03) L 07/29/21 05:17 Hgb 8.2 gm/dl (11.8-15.2) L 07/29/21 05:17 Hct 23.2 % (35.5-45.6) L 07/29/21 05:17 MCV 85 fl (84-94) 07/29/21 05:17 MCH 30 pg (28-32) 07/29/21 05:17 MCHC 35 % (32-34) H 07/29/21 05:17 RDW 14.2 % (13.2-15.2) 07/29/21 05:17 Plt Count 211 K/mm3 (140-440) 07/29/21 05:17 Lymph % (Auto) 19.5 % (13.4-35.0) 07/29/21 05:17 [place] % (Auto) 8.9 % (0.0-7.3) H 07/29/21 05:17 Eos % (Auto) 1.8 % (0.0-4.3) 07/29/21 05:17 Baso % (Auto) 0.5 % (0.0-1.8) 07/29/21 05:17 Lymph # (Auto) 1.8 K/mm3 (1.2-5.4) 07/29/21 05:17 [place] # (Auto) 0.8 K/mm3 (0.0-0.8) 07/29/21 05:17 Eos # (Auto) 0.2 K/mm3 (0.0-0.4) 07/29/21 05:17 Baso # (Auto) 0.1 K/mm3 (0.0-0.1) 07/29/21 05:17 Add Manual Diff Complete 07/28/21 04:50 Total Counted 100 07/28/21 04:50 Seg Neutrophils % 69.3 % (40.0-70.0) 07/29/21 05:17 Seg Neuts % (Manual) 68.0 % (40.0-70.0) 07/28/21 04:50 Lymphocytes % (Manual) 25.0 % (13.4-35.0) 07/28/21 04:50 Monocytes % (Manual) 7.0 % (0.0-7.3) 07/28/21 04:50 Nucleated RBC % Not Reportable 07/28/21 04:50 Seg Neutrophils # 6.3 K/mm3 (1.8-7.7) 07/29/21 05:17 Seg Neutrophils # Man 5.6 K/mm3 (1.8-7.7) 07/28/21 04:50 Band Neutrophils # 0.0 K/mm3 07/28/21 04:50 Lymphocytes # (Manual) 2.1 K/mm3 (1.2-5.4) 07/28/21 04:50 Abs React Lymphs (Man) 0.0 K/mm3 07/28/21 04:50 Monocytes # (Manual) 0.6 K/mm3 (0.0-0.8) 07/28/21 04:50 Eosinophils # (Manual) 0.0 K/mm3 (0.0-0.4) 07/28/21 04:50 Basophils # (Manual) 0.0 K/mm3 (0.0-0.1) 07/28/21 04:50 Metamyelocytes # 0.0 K/mm3 07/28/21 04:50 Myelocytes # 0.0 K/mm3 07/28/21 04:50 Promyelocytes # 0.0 K/mm3 07/28/21 04:50 Blast Cells # 0.0 K/mm3 07/28/21 04:50 WBC Morphology Not Reportable 07/28/21 04:50 Hypersegmented Neuts Not Reportable 07/28/21 04:50 Hyposegmented Neuts Not Reportable 07/28/21 04:50 Hypogranular Neuts Not Reportable 07/28/21 04:50 Smudge Cells Not Reportable 07/28/21 04:50 Toxic Granulation Not Reportable 07/28/21 04:50 Toxic Vacuolation Not Reportable 07/28/21 04:50 Dohle Bodies Not Reportable 07/28/21 04:50 Pelger-Huet Anomaly Not Reportable 07/28/21 04:50 Skylar Rods Not Reportable 07/28/21 04:50 Platelet Estimate Consistent w auto 07/28/21 04:50 Clumped Platelets Not Reportable 07/28/21 04:50 Plt Clumps, EDTA Not Reportable 07/28/21 04:50 Large Platelets Not Reportable 07/28/21 04:50 Giant Platelets Not Reportable 07/28/21 04:50 Platelet Satelliting Not Reportable 07/28/21 04:50 Plt Morphology Comment Not Reportable 07/28/21 04:50 RBC Morphology Not Reportable 07/28/21 04:50 Dimorphic RBCs Not Reportable 07/28/21 04:50 Polychromasia Not Reportable 07/28/21 04:50 Hypochromasia Not Reportable 07/28/21 04:50 Poikilocytosis Not Reportable 07/28/21 04:50 Anisocytosis 1+ 07/28/21 04:50 Microcytosis Not Reportable 07/28/21 04:50 Macrocytosis Not Reportable 07/28/21 04:50 Spherocytes Not Reportable 07/28/21 04:50 Pappenheimer Bodies Not Reportable 07/28/21 04:50 Sickle Cells Not Reportable 07/28/21 04:50 Target Cells Not Reportable 07/28/21 04:50 Tear Drop Cells Not Reportable 07/28/21 04:50 Ovalocytes Not Reportable 07/28/21 04:50 Helmet Cells Not Reportable 07/28/21 04:50 [place] Bodies Not Reportable 07/28/21 04:50 [place] Rings Not Reportable 07/28/21 04:50 [place] Cells Not Reportable 07/28/21 04:50 Bite Cells Not Reportable 07/28/21 04:50 Crenated Cell Not Reportable 07/28/21 04:50 Elliptocytes Not Reportable 07/28/21 04:50 Acanthocytes (Spur) Not Reportable 07/28/21 04:50 Rouleaux Not Reportable 07/28/21 04:50 Hemoglobin C Crystals Not Reportable 07/28/21 04:50 Schistocytes Not Reportable 07/28/21 04:50 Malaria parasites Not Reportable 07/28/21 04:50 [place] Bodies Not Reportable 07/28/21 04:50 Hem Pathologist Commnt No 07/28/21 04:50 PT 13.8 Sec. (12.2-14.9) 07/24/21 12:16 INR 1.00 (0.87-1.13) 07/24/21 12:16 APTT 27.2 Sec. (24.2-36.6) 07/24/21 12:16 Sodium 143 mmol/L (137-145) 07/29/21 05:17 Potassium 4.2 mmol/L (3.6-5.0) 07/29/21 05:17 Chloride 111.2 mmol/L (98-107) H 07/29/21 05:17 Carbon Dioxide 20 mmol/L (22-30) L 07/29/21 05:17 Anion Gap 16 mmol/L 07/29/21 05:17 BUN 20 mg/dL (9-20) 07/29/21 05:17 Creatinine 1.3 mg/dL (0.8-1.3) 07/29/21 05:17 Estimated GFR > 60 ml/min 07/29/21 05:17 BUN/Creatinine Ratio 15 % 07/29/21 05:17 Glucose 209 mg/dL (75-100) H 07/29/21 05:17 POC Glucose 119 mg/dL (70-105) H 07/30/21 08:02 Calcium 8.5 mg/dL (8.4-10.2) 07/29/21 05:17 Total Bilirubin 0.20 mg/dL (0.1-1.2) 07/24/21 12:16 Direct Bilirubin < 0.2 mg/dL (0-0.2) 07/24/21 12:16 Indirect Bilirubin 0.0 mg/dL 07/24/21 12:16 AST 10 units/L (5-40) 07/24/21 12:16 ALT 7 units/L (7-56) 07/24/21 12:16 Alkaline Phosphatase 50 units/L (35-129) 07/24/21 12:16 Total Protein 6.9 g/dL (6.3-8.2) 07/24/21 12:16 Albumin 3.7 g/dL (3.9-5) L 07/24/21 12:16 Albumin/Globulin Ratio 1.2 % 07/24/21 12:16 Coronavirus (PCR) Negative (Negative) 07/29/21 08:49 Blood Type A POSITIVE 07/26/21 10:19 Antibody Screen Negative 07/26/21 10:19 Crossmatch See Detail 07/26/21 10:19 Tam/IV: Voiding Method Urinal Active Medications - Current Medications Current Medications: Generic Name Dose Route Start Last Admin Trade Name Freq PRN Reason Stop Dose Admin Acetaminophen 650 mg 07/24/21 13:45 07/26/21 15:41 Acetaminophen 325 Mg Tab PO 650 mg Q4H PRN Administration Pain MILD(1-3)/Fever >100.5/VERMA Albuterol 2.5 mg 07/24/21 13:45 Albuterol 2.5 Mg/3 Ml Nebu IH Q4HRT PRN Shortness Of Breath Amlodipine Besylate 10 mg 07/28/21 18:00 07/29/21 09:19 Amlodipine 10 Mg Tab PO 10 mg QDAY CHARAN Administration Hydromorphone HCl 0.5 mg 07/24/21 13:45 07/26/21 15:37 Hydromorphone 1 Mg/1 Ml Inj IV 0.5 mg Q23H PRN Administration Pain , Severe (7-10) Sodium Chloride 1,000 mls @ 75 mls/hr 07/24/21 14:00 07/30/21 04:42 Nacl 0.9% 1000 Ml IV 75 mls/hr DIRECT CHARAN Administration Metoprolol Succinate 25 mg 07/28/21 20:00 07/29/21 09:20 Metoprolol Succinate Xl 25 Mg Tab PO 25 mg QDAY CHARAN Administration Ondansetron HCl 4 mg 07/24/21 13:45 Ondansetron 4 Mg/2 Ml Inj IV Q8H PRN Nausea And Vomiting Oxycodone/Acetaminophen 1 tab 07/24/21 13:45 07/29/21 17:12 Oxycodone /Acetaminophen 5-325mg Tab PO 1 tab Q12H PRN Administration Pain, Moderate (4-6) Pantoprazole Sodium 40 mg 07/29/21 16:30 07/29/21 17:12 Pantoprazole 40 Mg Tab PO 40 mg BIDAC CHARAN Administration Sodium Chloride 10 ml 07/24/21 22:00 07/29/21 21:11 Sodium Chloride 0.9% 10 Ml Flush Syringe IV 10 ml BID CHARAN Administration Sodium Chloride 10 ml 07/24/21 13:45 Sodium Chloride 0.9% 10 Ml Flush Syringe IV PRN PRN LINE FLUSH
[2021-07-30] MEDS: PANTOPRAZOLE 40 MG TAB PO SCH (09:44)
[2021-07-30] MEDS: METOPROLOL SUCCINATE XL 25 MG TAB PO SCH (09:44)
[2021-07-30] MEDS: oxyCODONE /ACETAMINOPHEN 5-325MG TAB PO PRN (09:44)
[2021-07-30] MEDS: amLODIPine 10 MG TAB PO SCH (09:45)
[2021-07-30 11:04] LABS: Basophils % (Auto) 0.4 % (0.0-1.8); Eosinophils # (Auto) 0.1 K/mm3 (0.0-0.4); Eosinophils % (Auto) 1.7 % (0.0-4.3); Hemoglobin 6.9 gm/dl (11.8-15.2); Lymphocytes # (Auto) 1.3 K/mm3 (1.2-5.4); Lymphocytes % (Auto) 18.2 % (13.4-35.0); Mean Corpuscular HGB Conc 35 % (32-34); Mean Corpuscular Volume 84 fl (84-94); Monocytes # (Auto) 0.6 K/mm3 (0.0-0.8); Monocytes % (Auto) 8.6 % (0.0-7.3); Platelet Count 209 K/mm3 (140-440); Red Blood Count 2.32 M/mm3 (3.65-5.03); Red Cell Distribution Width 14.2 % (13.2-15.2)
[2021-07-30 11:17] LABS: BUN/Creatinine Ratio 13; Blood Urea Nitrogen 17 mg/dL (9-20); Calcium 7.8 mg/dL (8.4-10.2); Hemolysis Index 0
[2021-07-30 11:25] LABS: Hematocrit 19.5 % (35.5-45.6)
[2021-07-30] MEDS ORDERED: SODIUM CHLORIDE 0.9% 500 ML 500 ML IV SCH (13:18)
--- NOTE | 2021-07-30 14:39 | Gastroenterology Progress Note ---
Assessment and Plan No evidence for overt gastrointestinal blood loss and given endoscopic finding unlikely that repeat EGD would be helpful at this juncture therefore recommend continue PPI continue to monitor clinically and trend hemoglobin and I will reassess the patient again tomorrow - Patient Problems (1) Anemia Current Visit: Yes Status: Acute (2) GI bleed Current Visit: Yes Status: Acute Subjective Date of service: 07/30/21 Principal diagnosis: melena Interval history: GI called back for drop in hgb Pt denies abd pain denies seeing blood in the stool I spoke with the nurse, she reports no overt bleeding seen at all EGD 07/25: IMPRESSION: 1. Large, cratered duodenal bulb ulcer with oozing of blood s/p epinephrine injection. No active bleeding at the end of the procedure. Gastric biopsies obtained to evaluate for H pylori. RECOMMENDATIONS: -continue IV PPI drip and close monitoring. If patient re-bleeds, will need IR consult to evaluate for embolization as this may be a GDA involved bleeding given location of the ulcer (discussed with IR). -pt's daughter updated on plan and findings of endoscopy Objective - Constitutional Vitals: Temp Pulse Resp BP Pulse Ox 98.8 F 64 18 157/59 96 07/30/21 08:04 07/30/21 09:44 07/30/21 08:04 07/30/21 09:44 07/30/21 10:00 General appearance: no acute distress - EENT Eyes: EOM intact - Respiratory Respiratory effort: normal - Gastrointestinal General gastrointestinal: Present: soft, non-tender - Labs CBC & Chem 7: 07/30/21 10:02 07/30/21 10:02 Labs: Laboratory Results - last 24 hr 07/29/21 07/30/21 07/30/21 08:49 08:02 10:02 WBC 7.3 RBC 2.32 L Hgb 6.9 L Hct 19.5 L* MCV 84 MCH 30 MCHC 35 H RDW 14.2 Plt Count 209 Lymph % (Auto) 18.2 [place] % (Auto) 8.6 H Eos % (Auto) 1.7 Baso % (Auto) 0.4 Lymph # (Auto) 1.3 [place] # (Auto) 0.6 Eos # (Auto) 0.1 Baso # (Auto) 0.0 Seg Neutrophils % 71.1 H Seg Neutrophils # 5.2 Sodium Potassium Chloride Carbon Dioxide Anion Gap BUN Creatinine Estimated GFR BUN/Creatinine Ratio Glucose POC Glucose 119 H Calcium Coronavirus (PCR) Negative 07/30/21 07/30/21 10:02 11:25 WBC RBC Hgb Hct MCV MCH MCHC RDW Plt Count Lymph % (Auto) [place] % (Auto) Eos % (Auto) Baso % (Auto) Lymph # (Auto) [place] # (Auto) Eos # (Auto) Baso # (Auto) Seg Neutrophils % Seg Neutrophils # Sodium 143 Potassium 4.0 Chloride 111.9 H Carbon Dioxide 19 L Anion Gap 16 BUN 17 Creatinine 1.3 Estimated GFR > 60 BUN/Creatinine Ratio 13 Glucose 153 H POC Glucose 128 H Calcium 7.8 L Coronavirus (PCR)
[2021-07-30] MEDS: PANTOPRAZOLE 40 MG INJ IV SCH (21:06)
--- NOTE | 2021-07-31 07:55 | Gastroenterology Progress Note ---
Assessment and Plan No evidence for overt gastrointestinal blood loss and given endoscopic finding unlikely that repeat EGD would be helpful at this juncture therefore recommend continue PPI continue to monitor clinically and trend hemoglobin Hgb from today not back at the time of this documentation - Patient Problems (1) Anemia Current Visit: Yes Status: Acute (2) GI bleed Current Visit: Yes Status: Acute Subjective Date of service: 07/31/21 Principal diagnosis: melena Interval history: Pt denies abd pain denies seeing blood in the stool I spoke with the nurse, she reports no overt bleeding seen at all s/p 2 units PRBC, awaiting post transfusion cbc EGD 07/25: IMPRESSION: 1. Large, cratered duodenal bulb ulcer with oozing of blood s/p epinephrine injection. No active bleeding at the end of the procedure. Gastric biopsies obtained to evaluate for H pylori. RECOMMENDATIONS: -continue IV PPI drip and close monitoring. If patient re-bleeds, will need IR consult to evaluate for embolization as this may be a GDA involved bleeding given location of the ulcer (discussed with IR). -pt's daughter updated on plan and findings of endoscopy Objective - Constitutional Vitals: Temp Pulse Resp BP Pulse Ox 98.9 F 72 18 167/58 98 07/31/21 03:30 07/31/21 05:00 07/31/21 03:30 07/31/21 03:30 07/31/21 03:30 General appearance: no acute distress - EENT ENT: hearing intact - Gastrointestinal General gastrointestinal: Present: soft - Labs CBC & Chem 7: 07/30/21 10:02 07/30/21 10:02 Labs: Laboratory Results - last 24 hr 07/30/21 07/30/21 07/30/21 08:02 10:02 10:02 WBC 7.3 RBC 2.32 L Hgb 6.9 L Hct 19.5 L* MCV 84 MCH 30 MCHC 35 H RDW 14.2 Plt Count 209 Lymph % (Auto) 18.2 [place] % (Auto) 8.6 H Eos % (Auto) 1.7 Baso % (Auto) 0.4 Lymph # (Auto) 1.3 [place] # (Auto) 0.6 Eos # (Auto) 0.1 Baso # (Auto) 0.0 Seg Neutrophils % 71.1 H Seg Neutrophils # 5.2 Sodium 143 Potassium 4.0 Chloride 111.9 H Carbon Dioxide 19 L Anion Gap 16 BUN 17 Creatinine 1.3 Estimated GFR > 60 BUN/Creatinine Ratio 13 Glucose 153 H POC Glucose 119 H Calcium 7.8 L Blood Type Antibody Screen Crossmatch 07/30/21 07/30/21 07/30/21 11:25 15:50 16:58 WBC RBC Hgb Hct MCV MCH MCHC RDW Plt Count Lymph % (Auto) [place] % (Auto) Eos % (Auto) Baso % (Auto) Lymph # (Auto) [place] # (Auto) Eos # (Auto) Baso # (Auto) Seg Neutrophils % Seg Neutrophils # Sodium Potassium Chloride Carbon Dioxide Anion Gap BUN Creatinine Estimated GFR BUN/Creatinine Ratio Glucose POC Glucose 128 H 175 H Calcium Blood Type A POSITIVE Antibody Screen Negative Crossmatch See Detail
[2021-07-31 09:08] LABS: Hemoglobin 10.2 gm/dl (11.8-15.2); Mean Corpuscular HGB Conc 35 % (32-34); Mean Corpuscular Volume 86 fl (84-94); Platelet Count 227 K/mm3 (140-440); Red Blood Count 3.38 M/mm3 (3.65-5.03); Red Cell Distribution Width 15.1 % (13.2-15.2)
[2021-07-31 09:27] LABS: BUN/Creatinine Ratio 13; Blood Urea Nitrogen 15 mg/dL (9-20); Calcium 8.2 mg/dL (8.4-10.2); Hemolysis Index 25
[2021-07-31] MEDS: amLODIPine 10 MG TAB PO SCH (10:23)
[2021-07-31] MEDS: METOPROLOL SUCCINATE XL 25 MG TAB PO SCH (10:23)
[2021-07-31] MEDS: PANTOPRAZOLE 40 MG INJ IV SCH ×2 (10:24→22:54)
[2021-07-31] MEDS: ACETAMINOPHEN 325 MG TAB PO PRN (10:24)
[2021-07-31] MEDS: SODIUM CHLORIDE 0.9% 1000 ML 1,000 ML IV SCH (11:41)
--- NOTE | 2021-07-31 11:53 | Progress Note ---
Assessment and Plan Assessment and plan: Large duodenal bulb ulcer GI bleed. Acute kidney injury. Present on admission. Etiology secondary to vasomotor nephropathy. Hypertension Vascular dementia Cerebral atherosclerosis/history of CVA 07/25/2021. Patient underwent upper endoscopy which revealed a non-obstructing B ring in the lower esophagus. The stomach appeared normal. Gastric biopsies were obtained to evaluate for H pylori (given duodenal ulcer). There was a large (~1.5 to 2 cm), cratered ulcer in the posterior wall of the duodenal bulb with severely inflamed surround mucosa. There was oozing of blood at the margins of the ulcer. No obvious visible vessel was seen although full visualization of the ulcer was difficult due to the location. The areas of oozing was treated with epinephrine injection (3 cc total). There was no active bleeding seen at the end of the procedure. Continue to monitor H&H and transfuse for hemoglobin less than 7. If patient rebleeds will likely need to have IR evaluation 07/26/2021. Patient denies any active bleeding, hematochezia or melena. However, patient with hemoglobin of 7.1. Also, given the size of the ulcer along with drop in hemoglobin, we will transfuse PRBCs for now. Continue to monitor for any rebleeding. GI following 07/27/2021. Evening lab check for CBC revealed hemoglobin of 6.8. Patient denies any active bleeding, hematochezia or melena. Patient completed second unit of PRBCs yesterday. Hemoglobin has improved to 8.1. We will continue to monitor for next 24 hours and recheck CBC in a.m. GI following 07/28/2021. Hemoglobin remained stable at 7.9. No evidence of active bleeding, hematochezia or melena. Continue to advance diet as tolerated. We will start IV fluid hydration x1 L and recheck creatinine. Anticipate discharge either later today or in a.m. per GI recommendations. 07/29/2021. Patient's hemoglobin is stable at 8.2. No evidence of active bleeding, hematochezia or melena. Continue full diet. Creatinine has improved back to baseline of 1.3. We will obtain Covid testing for discharge back to [facility]. 07/30/2021. Follow-up CBC to ensure that hemoglobin is stable. No evidence of active bleeding, hematochezia or melena. Continue full diet. Creatinine has improved back to baseline of 1.3. Covid testing is negative to return back to SNF. Anticipate discharge later today or in a.m. 07/31/2021 Patient with GI bleed due to large duodenal bulb ulcer. Hgb 10.2 today. Will repeat in am. Likely dc home tomorrow if H/h stable and no bleed. Hospitalist Physical - Physical exam Narrative exam: Gen: Not in acute distress, lying in bed HEENT: Normocephalic, atraumatic Lungs: Clear to auscultation Heart: S1 and S2 reg, no murmurs, rubs or gallop Abd:soft, non-tender, non distended, normal bowel sounds Ext: No edema, clubbing or cyanosis Neuro: Awake, alert, oriented X 3, moves all extremities - Constitutional Vitals: Temp Pulse Resp BP Pulse Ox 97.9 F 62 16 155/62 100 07/31/21 08:53 07/31/21 10:23 07/31/21 08:53 07/31/21 10:23 07/31/21 08:53 General appearance: Present: no acute distress Results - Labs CBC & Chem 7: 07/31/21 08:27 07/31/21 08:26 Labs: Laboratory Last Values WBC 7.8 K/mm3 (4.5-11.0) 07/31/21 08:27 RBC 3.38 M/mm3 (3.65-5.03) L 07/31/21 08:27 Hgb 10.2 gm/dl (11.8-15.2) L D 07/31/21 08:27 Hct 29.0 % (35.5-45.6) L D 07/31/21 08:27 MCV 86 fl (84-94) 07/31/21 08:27 MCH 30 pg (28-32) 07/31/21 08:27 MCHC 35 % (32-34) H 07/31/21 08:27 RDW 15.1 % (13.2-15.2) 07/31/21 08:27 Plt Count 227 K/mm3 (140-440) 07/31/21 08:27 Lymph % (Auto) 18.2 % (13.4-35.0) 07/30/21 10:02 [place] % (Auto) 8.6 % (0.0-7.3) H 07/30/21 10:02 Eos % (Auto) 1.7 % (0.0-4.3) 07/30/21 10:02 Baso % (Auto) 0.4 % (0.0-1.8) 07/30/21 10:02 Lymph # (Auto) 1.3 K/mm3 (1.2-5.4) 07/30/21 10:02 [place] # (Auto) 0.6 K/mm3 (0.0-0.8) 07/30/21 10:02 Eos # (Auto) 0.1 K/mm3 (0.0-0.4) 07/30/21 10:02 Baso # (Auto) 0.0 K/mm3 (0.0-0.1) 07/30/21 10:02 Add Manual Diff Complete 07/28/21 04:50 Total Counted 100 07/28/21 04:50 Seg Neutrophils % 71.1 % (40.0-70.0) H 07/30/21 10:02 Seg Neuts % (Manual) 68.0 % (40.0-70.0) 07/28/21 04:50 Lymphocytes % (Manual) 25.0 % (13.4-35.0) 07/28/21 04:50 Monocytes % (Manual) 7.0 % (0.0-7.3) 07/28/21 04:50 Nucleated RBC % Not Reportable 07/28/21 04:50 Seg Neutrophils # 5.2 K/mm3 (1.8-7.7) 07/30/21 10:02 Seg Neutrophils # Man 5.6 K/mm3 (1.8-7.7) 07/28/21 04:50 Band Neutrophils # 0.0 K/mm3 07/28/21 04:50 Lymphocytes # (Manual) 2.1 K/mm3 (1.2-5.4) 07/28/21 04:50 Abs React Lymphs (Man) 0.0 K/mm3 07/28/21 04:50 Monocytes # (Manual) 0.6 K/mm3 (0.0-0.8) 07/28/21 04:50 Eosinophils # (Manual) 0.0 K/mm3 (0.0-0.4) 07/28/21 04:50 Basophils # (Manual) 0.0 K/mm3 (0.0-0.1) 07/28/21 04:50 Metamyelocytes # 0.0 K/mm3 07/28/21 04:50 Myelocytes # 0.0 K/mm3 07/28/21 04:50 Promyelocytes # 0.0 K/mm3 07/28/21 04:50 Blast Cells # 0.0 K/mm3 07/28/21 04:50 WBC Morphology Not Reportable 07/28/21 04:50 Hypersegmented Neuts Not Reportable 07/28/21 04:50 Hyposegmented Neuts Not Reportable 07/28/21 04:50 Hypogranular Neuts Not Reportable 07/28/21 04:50 Smudge Cells Not Reportable 07/28/21 04:50 Toxic Granulation Not Reportable 07/28/21 04:50 Toxic Vacuolation Not Reportable 07/28/21 04:50 Dohle Bodies Not Reportable 07/28/21 04:50 Pelger-Huet Anomaly Not Reportable 07/28/21 04:50 Skylar Rods Not Reportable 07/28/21 04:50 Platelet Estimate Consistent w auto 07/28/21 04:50 Clumped Platelets Not Reportable 07/28/21 04:50 Plt Clumps, EDTA Not Reportable 07/28/21 04:50 Large Platelets Not Reportable 07/28/21 04:50 Giant Platelets Not Reportable 07/28/21 04:50 Platelet Satelliting Not Reportable 07/28/21 04:50 Plt Morphology Comment Not Reportable 07/28/21 04:50 RBC Morphology Not Reportable 07/28/21 04:50 Dimorphic RBCs Not Reportable 07/28/21 04:50 Polychromasia Not Reportable 07/28/21 04:50 Hypochromasia Not Reportable 07/28/21 04:50 Poikilocytosis Not Reportable 07/28/21 04:50 Anisocytosis 1+ 07/28/21 04:50 Microcytosis Not Reportable 07/28/21 04:50 Macrocytosis Not Reportable 07/28/21 04:50 Spherocytes Not Reportable 07/28/21 04:50 Pappenheimer Bodies Not Reportable 07/28/21 04:50 Sickle Cells Not Reportable 07/28/21 04:50 Target Cells Not Reportable 07/28/21 04:50 Tear Drop Cells Not Reportable 07/28/21 04:50 Ovalocytes Not Reportable 07/28/21 04:50 Helmet Cells Not Reportable 07/28/21 04:50 [place] Bodies Not Reportable 07/28/21 04:50 Odd Rings Not Reportable 07/28/21 04:50 [place] Cells Not Reportable 07/28/21 04:50 Bite Cells Not Reportable 07/28/21 04:50 Crenated Cell Not Reportable 07/28/21 04:50 Elliptocytes Not Reportable 07/28/21 04:50 Acanthocytes (Spur) Not Reportable 07/28/21 04:50 Rouleaux Not Reportable 07/28/21 04:50 Hemoglobin C Crystals Not Reportable 07/28/21 04:50 Schistocytes Not Reportable 07/28/21 04:50 Malaria parasites Not Reportable 07/28/21 04:50 [place]gr[place] Bodies Not Reportable 07/28/21 04:50 Hem Pathologist Commnt No 07/28/21 04:50 PT 13.8 Sec. (12.2-14.9) 07/24/21 12:16 INR 1.00 (0.87-1.13) 07/24/21 12:16 APTT 27.2 Sec. (24.2-36.6) 07/24/21 12:16 Sodium 144 mmol/L (137-145) 07/31/21 08:26 Potassium 4.0 mmol/L (3.6-5.0) 07/31/21 08:26 Chloride 114.0 mmol/L (98-107) H 07/31/21 08:26 Carbon Dioxide 19 mmol/L (22-30) L 07/31/21 08:26 Anion Gap 15 mmol/L 07/31/21 08:26 BUN 15 mg/dL (9-20) 07/31/21 08:26 Creatinine 1.2 mg/dL (0.8-1.3) 07/31/21 08:26 Estimated GFR > 60 ml/min 07/31/21 08:26 BUN/Creatinine Ratio 13 % 07/31/21 08:26 Glucose 113 mg/dL (75-100) H 07/31/21 08:26 POC Glucose 175 mg/dL (70-105) H 07/30/21 16:58 Calcium 8.2 mg/dL (8.4-10.2) L 07/31/21 08:26 Total Bilirubin 0.20 mg/dL (0.1-1.2) 07/24/21 12:16 Direct Bilirubin < 0.2 mg/dL (0-0.2) 07/24/21 12:16 Indirect Bilirubin 0.0 mg/dL 07/24/21 12:16 AST 10 units/L (5-40) 07/24/21 12:16 ALT 7 units/L (7-56) 07/24/21 12:16 Alkaline Phosphatase 50 units/L (35-129) 07/24/21 12:16 Total Protein 6.9 g/dL (6.3-8.2) 07/24/21 12:16 Albumin 3.7 g/dL (3.9-5) L 07/24/21 12:16 Albumin/Globulin Ratio 1.2 % 07/24/21 12:16 Coronavirus (PCR) Negative (Negative) 07/29/21 08:49 Blood Type A POSITIVE 07/30/21 15:50 Antibody Screen Negative 07/30/21 15:50 Crossmatch See Detail 07/30/21 15:50 Tam/IV: Voiding Method Condom Catheter Active Medications - Current Medications Current Medications: Generic Name Dose Route Start Last Admin Trade Name Freq PRN Reason Stop Dose Admin Acetaminophen 650 mg 07/24/21 13:45 07/31/21 10:24 Acetaminophen 325 Mg Tab PO 650 mg Q4H PRN Administration Pain MILD(1-3)/Fever >100.5/VERMA Albuterol 2.5 mg 07/24/21 13:45 Albuterol 2.5 Mg/3 Ml Nebu IH Q4HRT PRN Shortness Of Breath Amlodipine Besylate 10 mg 07/28/21 18:00 07/31/21 10:23 Amlodipine 10 Mg Tab PO 10 mg QDAY CHARAN Administration Hydromorphone HCl 0.5 mg 07/24/21 13:45 07/26/21 15:37 Hydromorphone 1 Mg/1 Ml Inj IV 0.5 mg Q23H PRN Administration Pain , Severe (7-10) Sodium Chloride 1,000 mls @ 75 mls/hr 07/24/21 14:00 07/31/21 11:41 Nacl 0.9% 1000 Ml IV 75 mls/hr DIRECT CHARAN Administration Sodium Chloride 500 mls @ 0 mls/hr 07/30/21 13:18 Nacl 0.9% 500 Ml IV ONCE CHARAN As Directed Metoprolol Succinate 25 mg 07/28/21 20:00 07/31/21 10:23 Metoprolol Succinate Xl 25 Mg Tab PO 25 mg QDAY CHARAN Administration Ondansetron HCl 4 mg 07/24/21 13:45 Ondansetron 4 Mg/2 Ml Inj IV Q8H PRN Nausea And Vomiting Oxycodone/Acetaminophen 1 tab 07/24/21 13:45 07/30/21 09:44 Oxycodone /Acetaminophen 5-325mg Tab PO 1 tab Q12H PRN Administration Pain, Moderate (4-6) Pantoprazole Sodium 40 mg 07/30/21 22:00 07/31/21 10:24 Pantoprazole 40 Mg Inj IV 40 mg BID CHARAN Administration Sodium Chloride 10 ml 07/24/21 22:00 07/31/21 10:24 Sodium Chloride 0.9% 10 Ml Flush Syringe IV 10 ml BID CHARAN Administration Sodium Chloride 10 ml 07/24/21 13:45 Sodium Chloride 0.9% 10 Ml Flush Syringe IV PRN PRN LINE FLUSH
[2021-07-31] MEDS: HYDROmorphone 1 MG/1 ML INJ IV PRN (14:55)
[2021-08-01 06:11] LABS: Hematocrit 26.3 % (35.5-45.6); Hemoglobin 9.5 gm/dl (11.8-15.2); Mean Corpuscular HGB Conc 36 % (32-34); Mean Corpuscular Volume 84 fl (84-94); Platelet Count 227 K/mm3 (140-440); Red Blood Count 3.13 M/mm3 (3.65-5.03)
[2021-08-01] MEDS: SODIUM CHLORIDE 0.9% 1000 ML 1,000 ML IV SCH (06:38)
--- NOTE | 2021-08-01 07:52 | Gastroenterology Progress Note ---
Assessment and Plan No evidence for overt gastrointestinal blood loss and greater than expected rise in hgb with blood transfusion and given endoscopic finding unlikely that repeat EGD would be helpful at this juncture therefore recommend continue PPI continue to monitor clinically and trend hemoglobin - Patient Problems (1) Anemia Current Visit: Yes Status: Acute (2) GI bleed Current Visit: Yes Status: Acute Subjective Date of service: 08/01/21 Principal diagnosis: melena Interval history: Pt denies abd pain denies seeing blood in the stool s/p 2 units PRBC, with 3+gram rise in Hgb no reports of overt GI blood loss EGD 07/25: IMPRESSION: 1. Large, cratered duodenal bulb ulcer with oozing of blood s/p epinephrine injection. No active bleeding at the end of the procedure. Gastric biopsies obtained to evaluate for H pylori. RECOMMENDATIONS: -continue IV PPI drip and close monitoring. If patient re-bleeds, will need IR consult to evaluate for embolization as this may be a GDA involved bleeding g iven location of the ulcer (discussed with IR). -pt's daughter updated on plan and findings of endoscopy Objective - Constitutional Vitals: Temp Pulse Resp BP Pulse Ox 98.0 F 56 L 16 177/69 97 08/01/21 03:02 08/01/21 05:00 08/01/21 03:02 08/01/21 03:02 08/01/21 03:02 General appearance: no acute distress - EENT ENT: hearing intact - Respiratory Respiratory effort: normal - Gastrointestinal General gastrointestinal: Present: soft - Labs CBC & Chem 7: 08/01/21 04:16 07/31/21 08:26 Labs: Laboratory Results - last 24 hr 07/31/21 07/31/21 08/01/21 08:26 08:27 04:16 WBC 7.8 8.0 RBC 3.38 L 3.13 L Hgb 10.2 L D 9.5 L Hct 29.0 L D 26.3 L MCV 86 84 MCH 30 30 MCHC 35 H 36 H RDW 15.1 15.0 Plt Count 227 227 Sodium 144 Potassium 4.0 Chloride 114.0 H Carbon Dioxide 19 L Anion Gap 15 BUN 15 Creatinine 1.2 Estimated GFR > 60 BUN/Creatinine Ratio 13 Glucose 113 H Calcium 8.2 L
[2021-08-01] MEDS: amLODIPine 10 MG TAB PO SCH (10:38)
[2021-08-01] MEDS: METOPROLOL SUCCINATE XL 25 MG TAB PO SCH (10:38)
[2021-08-01] MEDS ORDERED: PANTOPRAZOLE 40 MG TAB PO SCH (11:00)
[2021-08-01] MEDS: PANTOPRAZOLE 40 MG INJ IV SCH (11:50)
--- NOTE | 2021-08-01 11:51 | Progress Note ---
Assessment and Plan Assessment and plan: Large duodenal bulb ulcer GI bleed. Acute kidney injury. Present on admission. Etiology secondary to vasomotor nephropathy. Hypertension Vascular dementia Cerebral atherosclerosis/history of CVA 07/25/2021. Patient underwent upper endoscopy which revealed a non-obstructing B ring in the lower esophagus. The stomach appeared normal. Gastric biopsies were obtained to evaluate for H pylori (given duodenal ulcer). There was a large (~1.5 to 2 cm), cratered ulcer in the posterior wall of the duodenal bulb with severely inflamed surround mucosa. There was oozing of blood at the margins of the ulcer. No obvious visible vessel was seen although full visualization of the ulcer was difficult due to the location. The areas of oozing was treated with epinephrine injection (3 cc total). There was no active bleeding seen at the end of the procedure. Continue to monitor H&H and transfuse for hemoglobin less than 7. If patient rebleeds will likely need to have IR evaluation 07/26/2021. Patient denies any active bleeding, hematochezia or melena. However, patient with hemoglobin of 7.1. Also, given the size of the ulcer along with drop in hemoglobin, we will transfuse PRBCs for now. Continue to monitor for any rebleeding. GI following 07/27/2021. Evening lab check for CBC revealed hemoglobin of 6.8. Patient denies any active bleeding, hematochezia or melena. Patient completed second unit of PRBCs yesterday. Hemoglobin has improved to 8.1. We will continue to monitor for next 24 hours and recheck CBC in a.m. GI following 07/28/2021. Hemoglobin remained stable at 7.9. No evidence of active bleeding, hematochezia or melena. Continue to advance diet as tolerated. We will start IV fluid hydration x1 L and recheck creatinine. Anticipate discharge either later today or in a.m. per GI recommendations. 07/29/2021. Patient's hemoglobin is stable at 8.2. No evidence of active bleeding, hematochezia or melena. Continue full diet. Creatinine has improved back to baseline of 1.3. We will obtain Covid testing for discharge back to [facility]. 07/30/2021. Follow-up CBC to ensure that hemoglobin is stable. No evidence of active bleeding, hematochezia or melena. Continue full diet. Creatinine has improved back to baseline of 1.3. Covid testing is negative to return back to SNF. Anticipate discharge later today or in a.m. 07/31/2021 Patient with GI bleed due to large duodenal bulb ulcer. Hgb 10.2 today. Will repeat in am. Likely dc home tomorrow if H/h stable and no bleed. 08/01/2021 Patient with GI bleed due to large duodenal bulb ulcer. Hgb 9.5 today from 10.2 yesterday. I discussed with GI Physician, Dr. spencer. He wants to continue iv Protonix and monitoring. Not stable to dc home yet. Discharge planning as per GI Physician. History Interval history: Patient with GI bleed Hospitalist Physical - Physical exam Narrative exam: Gen: Not in acute distress, lying in bed HEENT: Normocephalic, atraumatic Lungs: Clear to auscultation Heart: S1 and S2 reg, no murmurs, rubs or gallop Abd:soft, non-tender, non distended, normal bowel sounds Ext: No edema, clubbing or cyanosis Neuro: Awake, alert, oriented X 3, moves all extremities - Constitutional Vitals: Temp Pulse Resp BP Pulse Ox 98.6 F 61 20 162/66 98 08/01/21 08:14 08/01/21 11:00 08/01/21 08:14 08/01/21 08:14 08/01/21 11:00 General appearance: Present: no acute distress Results - Labs CBC & Chem 7: 08/01/21 04:16 07/31/21 08:26 Labs: Laboratory Last Values WBC 8.0 K/mm3 (4.5-11.0) 08/01/21 04:16 RBC 3.13 M/mm3 (3.65-5.03) L 08/01/21 04:16 Hgb 9.5 gm/dl (11.8-15.2) L 08/01/21 04:16 Hct 26.3 % (35.5-45.6) L 08/01/21 04:16 MCV 84 fl (84-94) 08/01/21 04:16 MCH 30 pg (28-32) 08/01/21 04:16 MCHC 36 % (32-34) H 08/01/21 04:16 RDW 15.0 % (13.2-15.2) 08/01/21 04:16 Plt Count 227 K/mm3 (140-440) 08/01/21 04:16 Lymph % (Auto) 18.2 % (13.4-35.0) 07/30/21 10:02 [place] % (Auto) 8.6 % (0.0-7.3) H 07/30/21 10:02 Eos % (Auto) 1.7 % (0.0-4.3) 07/30/21 10:02 Baso % (Auto) 0.4 % (0.0-1.8) 07/30/21 10:02 Lymph # (Auto) 1.3 K/mm3 (1.2-5.4) 07/30/21 10:02 [place] # (Auto) 0.6 K/mm3 (0.0-0.8) 07/30/21 10:02 Eos # (Auto) 0.1 K/mm3 (0.0-0.4) 07/30/21 10:02 Baso # (Auto) 0.0 K/mm3 (0.0-0.1) 07/30/21 10:02 Add Manual Diff Complete 07/28/21 04:50 Total Counted 100 07/28/21 04:50 Seg Neutrophils % 71.1 % (40.0-70.0) H 07/30/21 10:02 Seg Neuts % (Manual) 68.0 % (40.0-70.0) 07/28/21 04:50 Lymphocytes % (Manual) 25.0 % (13.4-35.0) 07/28/21 04:50 Monocytes % (Manual) 7.0 % (0.0-7.3) 07/28/21 04:50 Nucleated RBC % Not Reportable 07/28/21 04:50 Seg Neutrophils # 5.2 K/mm3 (1.8-7.7) 07/30/21 10:02 Seg Neutrophils # Man 5.6 K/mm3 (1.8-7.7) 07/28/21 04:50 Band Neutrophils # 0.0 K/mm3 07/28/21 04:50 Lymphocytes # (Manual) 2.1 K/mm3 (1.2-5.4) 07/28/21 04:50 Abs React Lymphs (Man) 0.0 K/mm3 07/28/21 04:50 Monocytes # (Manual) 0.6 K/mm3 (0.0-0.8) 07/28/21 04:50 Eosinophils # (Manual) 0.0 K/mm3 (0.0-0.4) 07/28/21 04:50 Basophils # (Manual) 0.0 K/mm3 (0.0-0.1) 07/28/21 04:50 Metamyelocytes # 0.0 K/mm3 07/28/21 04:50 Myelocytes # 0.0 K/mm3 07/28/21 04:50 Promyelocytes # 0.0 K/mm3 07/28/21 04:50 Blast Cells # 0.0 K/mm3 07/28/21 04:50 WBC Morphology Not Reportable 07/28/21 04:50 Hypersegmented Neuts Not Reportable 07/28/21 04:50 Hyposegmented Neuts Not Reportable 07/28/21 04:50 Hypogranular Neuts Not Reportable 07/28/21 04:50 Smudge Cells Not Reportable 07/28/21 04:50 Toxic Granulation Not Reportable 07/28/21 04:50 Toxic Vacuolation Not Reportable 07/28/21 04:50 Dohle Bodies Not Reportable 07/28/21 04:50 Pelger-Huet Anomaly Not Reportable 07/28/21 04:50 Skylar Rods Not Reportable 07/28/21 04:50 Platelet Estimate Consistent w auto 07/28/21 04:50 Clumped Platelets Not Reportable 07/28/21 04:50 Plt Clumps, EDTA Not Reportable 07/28/21 04:50 Large Platelets Not Reportable 07/28/21 04:50 Giant Platelets Not Reportable 07/28/21 04:50 Platelet Satelliting Not Reportable 07/28/21 04:50 Plt Morphology Comment Not Reportable 07/28/21 04:50 RBC Morphology Not Reportable 07/28/21 04:50 Dimorphic RBCs Not Reportable 07/28/21 04:50 Polychromasia Not Reportable 07/28/21 04:50 Hypochromasia Not Reportable 07/28/21 04:50 Poikilocytosis Not Reportable 07/28/21 04:50 Anisocytosis 1+ 07/28/21 04:50 Microcytosis Not Reportable 07/28/21 04:50 Macrocytosis Not Reportable 07/28/21 04:50 Spherocytes Not Reportable 07/28/21 04:50 Pappenheimer Bodies Not Reportable 07/28/21 04:50 Sickle Cells Not Reportable 07/28/21 04:50 Target Cells Not Reportable 07/28/21 04:50 Tear Drop Cells Not Reportable 07/28/21 04:50 Ovalocytes Not Reportable 07/28/21 04:50 Helmet Cells Not Reportable 07/28/21 04:50 [place] Bodies Not Reportable 07/28/21 04:50 [place] Rings Not Reportable 07/28/21 04:50 [place] Cells Not Reportable 07/28/21 04:50 Bite Cells Not Reportable 07/28/21 04:50 Crenated Cell Not Reportable 07/28/21 04:50 Elliptocytes Not Reportable 07/28/21 04:50 Acanthocytes (Spur) Not Reportable 07/28/21 04:50 Rouleaux Not Reportable 07/28/21 04:50 Hemoglobin C Crystals Not Reportable 07/28/21 04:50 Schistocytes Not Reportable 07/28/21 04:50 Malaria parasites Not Reportable 07/28/21 04:50 Negrito Bodies Not Reportable 07/28/21 04:50 Hem Pathologist Commnt No 07/28/21 04:50 PT 13.8 Sec. (12.2-14.9) 07/24/21 12:16 INR 1.00 (0.87-1.13) 07/24/21 12:16 APTT 27.2 Sec. (24.2-36.6) 07/24/21 12:16 Sodium 144 mmol/L (137-145) 07/31/21 08:26 Potassium 4.0 mmol/L (3.6-5.0) 07/31/21 08:26 Chloride 114.0 mmol/L (98-107) H 07/31/21 08:26 Carbon Dioxide 19 mmol/L (22-30) L 07/31/21 08:26 Anion Gap 15 mmol/L 07/31/21 08:26 BUN 15 mg/dL (9-20) 07/31/21 08:26 Creatinine 1.2 mg/dL (0.8-1.3) 07/31/21 08:26 Estimated GFR > 60 ml/min 07/31/21 08:26 BUN/Creatinine Ratio 13 % 07/31/21 08:26 Glucose 113 mg/dL (75-100) H 07/31/21 08:26 POC Glucose 175 mg/dL (70-105) H 07/30/21 16:58 Calcium 8.2 mg/dL (8.4-10.2) L 07/31/21 08:26 Total Bilirubin 0.20 mg/dL (0.1-1.2) 07/24/21 12:16 Direct Bilirubin < 0.2 mg/dL (0-0.2) 07/24/21 12:16 Indirect Bilirubin 0.0 mg/dL 07/24/21 12:16 AST 10 units/L (5-40) 07/24/21 12:16 ALT 7 units/L (7-56) 07/24/21 12:16 Alkaline Phosphatase 50 units/L (35-129) 07/24/21 12:16 Total Protein 6.9 g/dL (6.3-8.2) 07/24/21 12:16 Albumin 3.7 g/dL (3.9-5) L 07/24/21 12:16 Albumin/Globulin Ratio 1.2 % 07/24/21 12:16 Coronavirus (PCR) Negative (Negative) 07/29/21 08:49 Blood Type A POSITIVE 07/30/21 15:50 Antibody Screen Negative 07/30/21 15:50 Crossmatch See Detail 07/30/21 15:50 Tam/IV: Voiding Method Urinal Active Medications - Current Medications Current Medications: Generic Name Dose Route Start Last Admin Trade Name Freq PRN Reason Stop Dose Admin Acetaminophen 650 mg 07/24/21 13:45 07/31/21 10:24 Acetaminophen 325 Mg Tab PO 650 mg Q4H PRN Administration Pain MILD(1-3)/Fever >100.5/VERMA Albuterol 2.5 mg 07/24/21 13:45 Albuterol 2.5 Mg/3 Ml Nebu IH Q4HRT PRN Shortness Of Breath Amlodipine Besylate 10 mg 07/28/21 18:00 08/01/21 10:38 Amlodipine 10 Mg Tab PO 10 mg QDAY CHARAN Administration Hydromorphone HCl 0.5 mg 07/24/21 13:45 07/31/21 14:55 Hydromorphone 1 Mg/1 Ml Inj IV 0.5 mg Q23H PRN Administration Pain , Severe (7-10) Sodium Chloride 1,000 mls @ 75 mls/hr 07/24/21 14:00 08/01/21 06:38 Nacl 0.9% 1000 Ml IV 75 mls/hr DIRECT CHARAN Administration Metoprolol Succinate 25 mg 07/28/21 20:00 08/01/21 10:38 Metoprolol Succinate Xl 25 Mg Tab PO 25 mg QDAY CHARAN Administration Ondansetron HCl 4 mg 07/24/21 13:45 Ondansetron 4 Mg/2 Ml Inj IV Q8H PRN Nausea And Vomiting Oxycodone/Acetaminophen 1 tab 07/24/21 13:45 07/30/21 09:44 Oxycodone /Acetaminophen 5-325mg Tab PO 1 tab Q12H PRN Administration Pain, Moderate (4-6) Pantoprazole Sodium 40 mg 08/01/21 16:30 Pantoprazole 40 Mg Tab PO BIDAC CHARAN Sodium Chloride 10 ml 07/24/21 22:00 08/01/21 10:39 Sodium Chloride 0.9% 10 Ml Flush Syringe IV 10 ml BID CHARAN Administration Sodium Chloride 10 ml 07/24/21 13:45 Sodium Chloride 0.9% 10 Ml Flush Syringe IV PRN PRN LINE FLUSH
[2021-08-01] MEDS: PANTOPRAZOLE 40 MG TAB PO SCH (18:03)
[2021-08-02 05:08] LABS: Hematocrit 28.4 % (35.5-45.6); Mean Corpuscular HGB Conc 35 % (32-34); Mean Corpuscular Volume 84 fl (84-94); Platelet Count 242 K/mm3 (140-440); Red Blood Count 3.37 M/mm3 (3.65-5.03); Red Cell Distribution Width 14.8 % (13.2-15.2)
[2021-08-02 05:26] LABS: BUN/Creatinine Ratio 12; Blood Urea Nitrogen 17 mg/dL (9-20); Calcium 8.6 mg/dL (8.4-10.2); Hemolysis Index 3
--- NOTE | 2021-08-02 08:01 | Gastroenterology Progress Note ---
Assessment and Plan No evidence for overt gastrointestinal blood loss and stable hgb s/p transfusion so cont ppi and monitor clinically, no endoscopic intervention indicated so GI will sign off please call us back if we can be of any further assist - Patient Problems (1) Anemia Current Visit: Yes Status: Acute (2) GI bleed Current Visit: Yes Status: Acute Subjective Date of service: 08/02/21 Principal diagnosis: melena Interval history: Pt denies abd pain denies seeing blood in the stool no reports of overt GI blood loss by patient or the nurse when I asked EGD 07/25: IMPRESSION: 1. Large, cratered duodenal bulb ulcer with oozing of blood s/p epinephrine injection. No active bleeding at the end of the procedure. Gastric biopsies obtained to evaluate for H pylori. RECOMMENDATIONS: -continue IV PPI drip and close monitoring. If patient re-bleeds, will need IR consult to evaluate for embolization as this may be a GDA involved bleeding given location of the ulcer (discussed with IR). -pt's daughter updated on plan and findings of endoscopy Objective - Constitutional Vitals: Temp Pulse Resp BP Pulse Ox 98.7 F 60 18 172/75 99 08/02/21 04:44 08/02/21 04:44 08/02/21 04:44 08/02/21 04:44 08/02/21 04:44 General appearance: no acute distress - Respiratory Respiratory effort: normal - Gastrointestinal General gastrointestinal: Present: soft - Labs CBC & Chem 7: 08/02/21 04:22 08/02/21 04:22 Labs: Laboratory Results - last 24 hr 08/02/21 08/02/21 04:22 04:22 WBC 8.2 RBC 3.37 L Hgb 10.0 L Hct 28.4 L MCV 84 MCH 30 MCHC 35 H RDW 14.8 Plt Count 242 Sodium 140 Potassium 3.7 Chloride 107.8 H Carbon Dioxide 22 Anion Gap 14 BUN 17 Creatinine 1.4 H Estimated GFR > 60 BUN/Creatinine Ratio 12 Glucose 115 H Calcium 8.6
[2021-08-02] MEDS: PANTOPRAZOLE 40 MG TAB PO SCH ×2 (08:30→16:17)
[2021-08-02] MEDS: amLODIPine 10 MG TAB PO SCH (09:14)
[2021-08-02] MEDS: METOPROLOL SUCCINATE XL 25 MG TAB PO SCH (09:14)
[2021-08-02] MEDS ORDERED: hydrALAZINE 20 MG/1 ML INJ IV PRN ×2 (11:00→11:04)
[2021-08-02] MEDS: SODIUM CHLORIDE 0.9% 1000 ML 1,000 ML IV SCH (12:52)
--- NOTE | 2021-08-02 13:39 | Progress Note ---
Assessment and Plan Assessment and plan: Large duodenal bulb ulcer GI bleed. Acute kidney injury. Present on admission. Etiology secondary to vasomotor nephropathy. Hypertension Vascular dementia Cerebral atherosclerosis/history of CVA 07/25/2021. Patient underwent upper endoscopy which revealed a non-obstructing B ring in the lower esophagus. The stomach appeared normal. Gastric biopsies were obtained to evaluate for H pylori (given duodenal ulcer). There was a large (~1.5 to 2 cm), cratered ulcer in the posterior wall of the duodenal bulb with severely inflamed surround mucosa. There was oozing of blood at the margins of the ulcer. No obvious visible vessel was seen although full visualization of the ulcer was difficult due to the location. The areas of oozing was treated with epinephrine injection (3 cc total). There was no active bleeding seen at the end of the procedure. Continue to monitor H&H and transfuse for hemoglobin less than 7. If patient rebleeds will likely need to have IR evaluation 07/26/2021. Patient denies any active bleeding, hematochezia or melena. However, patient with hemoglobin of 7.1. Also, given the size of the ulcer along with drop in hemoglobin, we will transfuse PRBCs for now. Continue to monitor for any rebleeding. GI following 07/27/2021. Evening lab check for CBC revealed hemoglobin of 6.8. Patient denies any active bleeding, hematochezia or melena. Patient completed second unit of PRBCs yesterday. Hemoglobin has improved to 8.1. We will continue to monitor for next 24 hours and recheck CBC in a.m. GI following 07/28/2021. Hemoglobin remained stable at 7.9. No evidence of active bleeding, hematochezia or melena. Continue to advance diet as tolerated. We will start IV fluid hydration x1 L and recheck creatinine. Anticipate discharge either later today or in a.m. per GI recommendations. 07/29/2021. Patient's hemoglobin is stable at 8.2. No evidence of active bleeding, hematochezia or melena. Continue full diet. Creatinine has improved back to baseline of 1.3. We will obtain Covid testing for discharge back to [facility]. 07/30/2021. Follow-up CBC to ensure that hemoglobin is stable. No evidence of active bleeding, hematochezia or melena. Continue full diet. Creatinine has improved back to baseline of 1.3. Covid testing is negative to return back to SNF. Anticipate discharge later today or in a.m. 07/31/2021 Patient with GI bleed due to large duodenal bulb ulcer. Hgb 10.2 today. Will repeat in am. Likely dc home tomorrow if H/h stable and no bleed. 08/01/2021 Patient with GI bleed due to large duodenal bulb ulcer. Hgb 9.5 today from 10.2 yesterday. I discussed with GI Physician, Dr. spencer. He wants to continue iv Protonix and monitoring. Not stable to dc home yet. Discharge planning as per GI Physician. 08/02/2021. Blood pressure still uncontrolled. Will start hydralazine 25 mg p.o. 3 times daily. Continue other current medications. H&H is stable. GI noted no further endoscopic intervention required and has signed off. Plan is for possible discharge back to SNF tomorrow if blood pressure is controlled. History Interval history: No pain, no shortness of breath, no cough, no fever. His nurse reported that patient has required restraints since yesterday and requesting for renewal. Also noted patient's blood pressure is still uncontrolled Hospitalist Physical - Constitutional Vitals: Temp Pulse Resp BP Pulse Ox 97.2 F L 63 17 156/79 97 08/02/21 12:47 08/02/21 12:47 08/02/21 12:47 08/02/21 12:47 08/02/21 12:47 General appearance: Present: no acute distress, other (Right upper extremity soft wrist restraints.) - EENT Eyes: Present: PERRL, EOM intact ENT: hearing intact - Neck Neck: Present: supple, normal ROM - Respiratory Respiratory effort: normal Respiratory: bilateral: CTA - Extremities Extremities: No edema - Abdominal General gastrointestinal: soft, non-tender, non-distended, normal bowel sounds - Integumentary Integumentary: Present: clear, warm, dry - Psychiatric Psychiatric: appropriate mood/affect Results - Labs CBC & Chem 7: 08/02/21 04:22 08/02/21 04:22 Labs: Laboratory Last Values WBC 8.2 K/mm3 (4.5-11.0) 08/02/21 04:22 RBC 3.37 M/mm3 (3.65-5.03) L 08/02/21 04:22 Hgb 10.0 gm/dl (11.8-15.2) L 08/02/21 04:22 Hct 28.4 % (35.5-45.6) L 08/02/21 04:22 MCV 84 fl (84-94) 08/02/21 04:22 MCH 30 pg (28-32) 08/02/21 04:22 MCHC 35 % (32-34) H 08/02/21 04:22 RDW 14.8 % (13.2-15.2) 08/02/21 04:22 Plt Count 242 K/mm3 (140-440) 08/02/21 04:22 Lymph % (Auto) 18.2 % (13.4-35.0) 07/30/21 10:02 [place] % (Auto) 8.6 % (0.0-7.3) H 07/30/21 10:02 Eos % (Auto) 1.7 % (0.0-4.3) 07/30/21 10:02 Baso % (Auto) 0.4 % (0.0-1.8) 07/30/21 10:02 Lymph # (Auto) 1.3 K/mm3 (1.2-5.4) 07/30/21 10:02 [place] # (Auto) 0.6 K/mm3 (0.0-0.8) 07/30/21 10:02 Eos # (Auto) 0.1 K/mm3 (0.0-0.4) 07/30/21 10:02 Baso # (Auto) 0.0 K/mm3 (0.0-0.1) 07/30/21 10:02 Add Manual Diff Complete 07/28/21 04:50 Total Counted 100 07/28/21 04:50 Seg Neutrophils % 71.1 % (40.0-70.0) H 07/30/21 10:02 Seg Neuts % (Manual) 68.0 % (40.0-70.0) 07/28/21 04:50 Lymphocytes % (Manual) 25.0 % (13.4-35.0) 07/28/21 04:50 Monocytes % (Manual) 7.0 % (0.0-7.3) 07/28/21 04:50 Nucleated RBC % Not Reportable 07/28/21 04:50 Seg Neutrophils # 5.2 K/mm3 (1.8-7.7) 07/30/21 10:02 Seg Neutrophils # Man 5.6 K/mm3 (1.8-7.7) 07/28/21 04:50 Band Neutrophils # 0.0 K/mm3 07/28/21 04:50 Lymphocytes # (Manual) 2.1 K/mm3 (1.2-5.4) 07/28/21 04:50 Abs React Lymphs (Man) 0.0 K/mm3 07/28/21 04:50 Monocytes # (Manual) 0.6 K/mm3 (0.0-0.8) 07/28/21 04:50 Eosinophils # (Manual) 0.0 K/mm3 (0.0-0.4) 07/28/21 04:50 Basophils # (Manual) 0.0 K/mm3 (0.0-0.1) 07/28/21 04:50 Metamyelocytes # 0.0 K/mm3 07/28/21 04:50 Myelocytes # 0.0 K/mm3 07/28/21 04:50 Promyelocytes # 0.0 K/mm3 07/28/21 04:50 Blast Cells # 0.0 K/mm3 07/28/21 04:50 WBC Morphology Not Reportable 07/28/21 04:50 Hypersegmented Neuts Not Reportable 07/28/21 04:50 Hyposegmented Neuts Not Reportable 07/28/21 04:50 Hypogranular Neuts Not Reportable 07/28/21 04:50 Smudge Cells Not Reportable 07/28/21 04:50 Toxic Granulation Not Reportable 07/28/21 04:50 Toxic Vacuolation Not Reportable 07/28/21 04:50 Dohle Bodies Not Reportable 07/28/21 04:50 Pelger-Huet Anomaly Not Reportable 07/28/21 04:50 Skylar Rods Not Reportable 07/28/21 04:50 Platelet Estimate Consistent w auto 07/28/21 04:50 Clumped Platelets Not Reportable 07/28/21 04:50 Plt Clumps, EDTA Not Reportable 07/28/21 04:50 Large Platelets Not Reportable 07/28/21 04:50 Giant Platelets Not Reportable 07/28/21 04:50 Platelet Satelliting Not Reportable 07/28/21 04:50 Plt Morphology Comment Not Reportable 07/28/21 04:50 RBC Morphology Not Reportable 07/28/21 04:50 Dimorphic RBCs Not Reportable 07/28/21 04:50 Polychromasia Not Reportable 07/28/21 04:50 Hypochromasia Not Reportable 07/28/21 04:50 Poikilocytosis Not Reportable 07/28/21 04:50 Anisocytosis 1+ 07/28/21 04:50 Microcytosis Not Reportable 07/28/21 04:50 Macrocytosis Not Reportable 07/28/21 04:50 Spherocytes Not Reportable 07/28/21 04:50 Pappenheimer Bodies Not Reportable 07/28/21 04:50 Sickle Cells Not Reportable 07/28/21 04:50 Target Cells Not Reportable 07/28/21 04:50 Tear Drop Cells Not Reportable 07/28/21 04:50 Ovalocytes Not Reportable 07/28/21 04:50 Helmet Cells Not Reportable 07/28/21 04:50 [place] Bodies Not Reportable 07/28/21 04:50 [place] Rings Not Reportable 07/28/21 04:50 Hao Cells Not Reportable 07/28/21 04:50 Bite Cells Not Reportable 07/28/21 04:50 Crenated Cell Not Reportable 07/28/21 04:50 Elliptocytes Not Reportable 07/28/21 04:50 Acanthocytes (Spur) Not Reportable 07/28/21 04:50 Rouleaux Not Reportable 07/28/21 04:50 Hemoglobin C Crystals Not Reportable 07/28/21 04:50 Schistocytes Not Reportable 07/28/21 04:50 Malaria parasites Not Reportable 07/28/21 04:50 Negrito Bodies Not Reportable 07/28/21 04:50 Hem Pathologist Commnt No 07/28/21 04:50 PT 13.8 Sec. (12.2-14.9) 07/24/21 12:16 INR 1.00 (0.87-1.13) 07/24/21 12:16 APTT 27.2 Sec. (24.2-36.6) 07/24/21 12:16 Sodium 140 mmol/L (137-145) 08/02/21 04:22 Potassium 3.7 mmol/L (3.6-5.0) 08/02/21 04:22 Chloride 107.8 mmol/L (98-107) H 08/02/21 04:22 Carbon Dioxide 22 mmol/L (22-30) 08/02/21 04:22 Anion Gap 14 mmol/L 08/02/21 04:22 BUN 17 mg/dL (9-20) 08/02/21 04:22 Creatinine 1.4 mg/dL (0.8-1.3) H 08/02/21 04:22 Estimated GFR > 60 ml/min 08/02/21 04:22 BUN/Creatinine Ratio 12 % 08/02/21 04:22 Glucose 115 mg/dL (75-100) H 08/02/21 04:22 POC Glucose 175 mg/dL (70-105) H 07/30/21 16:58 Calcium 8.6 mg/dL (8.4-10.2) 08/02/21 04:22 Total Bilirubin 0.20 mg/dL (0.1-1.2) 07/24/21 12:16 Direct Bilirubin < 0.2 mg/dL (0-0.2) 07/24/21 12:16 Indirect Bilirubin 0.0 mg/dL 07/24/21 12:16 AST 10 units/L (5-40) 07/24/21 12:16 ALT 7 units/L (7-56) 07/24/21 12:16 Alkaline Phosphatase 50 units/L (35-129) 07/24/21 12:16 Total Protein 6.9 g/dL (6.3-8.2) 07/24/21 12:16 Albumin 3.7 g/dL (3.9-5) L 07/24/21 12:16 Albumin/Globulin Ratio 1.2 % 07/24/21 12:16 Coronavirus (PCR) Negative (Negative) 07/29/21 08:49 Blood Type A POSITIVE 07/30/21 15:50 Antibody Screen Negative 07/30/21 15:50 Crossmatch See Detail 07/30/21 15:50 Tam/IV: Voiding Method Urinal Active Medications - Current Medications Current Medications: Generic Name Dose Route Start Last Admin Trade Name Freq PRN Reason Stop Dose Admin Acetaminophen 650 mg 09/28/21 13:45 07/31/21 10:24 Acetaminophen 325 Mg Tab PO 650 mg Q4H PRN Administration Pain MILD(1-3)/Fever >100.5/VERMA Albuterol 2.5 mg 07/24/21 13:45 Albuterol 2.5 Mg/3 Ml Nebu IH Q4HRT PRN Shortness Of Breath Amlodipine Besylate 10 mg 07/28/21 18:00 08/02/21 09:14 Amlodipine 10 Mg Tab PO 10 mg QDAY CHARAN Administration Hydralazine HCl 10 mg 08/02/21 11:04 08/02/21 11:26 Hydralazine 20 Mg/1 Ml Inj IV 10 mg Q6HR PRN Administration for SBP > 160 mmHg Hydromorphone HCl 0.5 mg 07/24/21 13:45 07/31/21 14:55 Hydromorphone 1 Mg/1 Ml Inj IV 0.5 mg Q23H PRN Administration Pain , Severe (7-10) Sodium Chloride 1,000 mls @ 75 mls/hr 07/24/21 14:00 08/02/21 12:52 Nacl 0.9% 1000 Ml IV 75 mls/hr DIRECT CHARAN Administration Metoprolol Succinate 25 mg 07/28/21 20:00 08/02/21 09:14 Metoprolol Succinate Xl 25 Mg Tab PO 25 mg QDAY CHARAN Administration Ondansetron HCl 4 mg 07/24/21 13:45 Ondansetron 4 Mg/2 Ml Inj IV Q8H PRN Nausea And Vomiting Oxycodone/Acetaminophen 1 tab 07/24/21 13:45 07/30/21 09:44 Oxycodone /Acetaminophen 5-325mg Tab PO 1 tab Q12H PRN Administration Pain, Moderate (4-6) Pantoprazole Sodium 40 mg 08/01/21 16:30 08/02/21 08:30 Pantoprazole 40 Mg Tab PO 40 mg BIDAC CHARAN Administration Sodium Chloride 10 ml 07/24/21 22:00 08/02/21 09:15 Sodium Chloride 0.9% 10 Ml Flush Syringe IV 10 ml BID CHARAN Administration Sodium Chloride 10 ml 07/24/21 13:45 Sodium Chloride 0.9% 10 Ml Flush Syringe IV PRN PRN LINE FLUSH
[2021-08-02] MEDS: hydrALAZINE 25 MG TAB PO SCH ×2 (15:17→21:41)
[2021-08-02] MEDS: oxyCODONE /ACETAMINOPHEN 5-325MG TAB PO PRN (17:54)
[2021-08-03] MEDS: PANTOPRAZOLE 40 MG TAB PO SCH ×2 (08:48→17:17)
[2021-08-03] MEDS: METOPROLOL SUCCINATE XL 25 MG TAB PO SCH (09:27)
[2021-08-03] MEDS: amLODIPine 10 MG TAB PO SCH (09:28)
--- NOTE | 2021-08-03 12:44 | Discharge Summary ---
Providers - Providers Date of Admission: 07/26/21 14:35 Date of discharge: 08/03/21 Attending physician: ANDREA CAMACHO MD 07/30/21 09:09 Physical Therapy Evaluation and Treat [CONS] Stat Comment: Reason For Exam: PT to eval and treat Primary care physician: PROCUREMENT INSPECTOR Hospitalization Reason for admission: GI bleed Condition: Stable Hospital course: A 65 YO Male Halfway Facility Resident at [facility] with Vascular Dementia, Cerebral Atherosclerosis, DM, HTN, CKD, Nicotin e Dependence presents to ED for evaluation for bloody stool. He was found to have Hemoccult positive stool as well as blood per blood per rectum while in ER. Patient underwent upper endoscopy which revealed a non-obstructing B ring in the lower esophagus. The stomach appeared normal. Gastric biopsies were obtained to evaluate for H pylori (given duodenal ulcer). There was a large (~1.5 to 2 cm), cratered ulcer in the posterior wall of the duodenal bulb with severely inflamed surround mucosa. There was oozing of blood at the margins of the ulcer. No obvious visible vessel was seen although full visualization of the ulcer was difficult due to the location. The areas of oozing was treated with epinephrine injection (3 cc total). There was no active bleeding seen at the end of the procedure. He had anemia due to acute blood loss anemia which required transfusion with 4 units of PRBC. His H&H was monitored and remained stable afterwards. He was cleared by GI for discharge recommendations continue Protonix twice daily. He was on aspirin prior to admission which was discontinued. He has hypertension which was controlled. He has acute kidney injury which resolved with IV fluid. At the time of discharge, he had no new complaints. Disposition: 03 [facility] Final Discharge Diagnosis (Prints w/discharge instructions): GI bleed due to duodenal ulcer. Status post EGD. Acute blood loss anemia due to GI bleed. Status post transfusion of 4 units of PRBC. Acute kidney injury. Hypertension. Core Measure Documentation - Palliative Care Palliative Care/ Comfort Measures: Not Applicable - Core Measures Any of the following diagnoses?: history only - VTE Discharge Requirements Deep Vein Thrombosis/Pulmonary Embolism Present on Admission: No Has pt received <5 days of overlap therapy or INR<2.0: No Anticoagulant overlap therapy prescribed at discharge: No Contraindication No Overlap Therapy order at [place]: Not Indicated - Acute [place] Discharge Requirements Aspirin at discharge: No Reason for no aspirin on DC: Bleeding REGINE/ARB for LVSD if EF <40%: Not Applicable Reason for no REGINE/ARB: Renal impairment Beta shahid at discharge: No Reason for no beta shahid on DC: Medical contraindication Statin for LDL = or >100 mg/dl on DC: Not Applicable Reason for no statin on DC: Medical contraindication - Heart Failure Discharge Requirements REGINE/ARB for LVSD if EF <40%: Not Applicable Reason for no REGINE/ARB: Renal impairment Beta shahid at discharge: No Reason for no beta shahid on DC: Medical contraindication - Stroke Discharge Requirements Statin for LDL = or >70 mg/dl on DC: Not Applicable Reason for no statin on DC: Not Indicated Anticoag for atrial fib/atrial flutter: Not Applicable Reason for no anticoag for AF/F on DC: Not Indicated Antithrombotic for ischemic stroke: No Reason for no antithrombotic on DC: Not Indicated Exam - Constitutional Vitals: Temp Pulse Resp BP Pulse Ox 98.2 F 61 17 153/69 98 08/03/21 08:40 08/03/21 04:30 08/03/21 10:00 08/03/21 08:40 08/03/21 10:00 General appearance: Present: no acute distress - EENT Eyes: Present: PERRL, EOM intact ENT: hearing intact - Neck Neck: Present: supple - Respiratory Respiratory effort: normal - Cardiovascular Rhythm: regular Heart Sounds: Present: S1 & S2 - Extremities Extremities: No edema - Abdominal General gastrointestinal: Present: soft, non-tender, non-distended, normal bowel sounds - Integumentary Integumentary: Present: clear, warm, dry - Musculoskeletal Musculoskeletal: strength equal bilaterally - Psychiatric Psychiatric: appropriate mood/affect - Neurologic Neurologic: moves all extremities Plan Activity: advance as tolerated Weight Bearing Status: Weight Bear as Tolerated Diet: low salt Follow up with: AKIN VIEYRA MD [Staff Physician] - 7 Days PRIMARY CARE, [Primary Care Provider] - 3-5 Days Forms: Accompanied Note Prescriptions: hydrALAZINE [Apresoline TAB] 25 mg PO Q8HR #90 tab Pantoprazole Sodium [Protonix] 40 mg PO BID #60 granpkt.
[2021-08-03] MEDS: hydrALAZINE 25 MG TAB PO SCH (13:00)
[2021-08-03 13:01] VITALS: BP 143/71
== END 2021-08-03 17:53 | DRG 377 ==
LOC: EDBD → ED 10:50 → INTOOBSV 13:45 → 4A 13:45 → OBSVTOIN 07-26 14:35
PROVIDERS: ADMIT Internal Medicine; ATTEND Internal Medicine
PROC: 0DB68ZX Excision of Stomach, Via Natural or Artificial Opening Endoscopic, Diagnostic (ICD-10-PCS; principal; 2021-07-25)
PROC: 3E0G8GC Introduction of Other Therapeutic Substance into Upper GI, Via Natural or Artificial Opening Endoscopic (ICD-10-PCS; 2021-07-25)
PROC: 30233N1 Transfusion of Nonautologous Red Blood Cells into Peripheral Vein, Percutaneous Approach (ICD-10-PCS; 2021-07-26)
DX: K26.4 Chronic or unspecified duodenal ulcer with hemorrhage (principal); N17.0 Acute kidney failure with tubular necrosis; R65.10 Systemic inflammatory response syndrome (SIRS) of non-infectious origin without acute organ dysfunction; D62 Acute posthemorrhagic anemia; I67.2 Cerebral atherosclerosis; F01.50 Vascular dementia, unspecified severity, without behavioral disturbance, psychotic disturbance, mood disturbance, and anxiety; Z20.822 Contact with and (suspected) exposure to COVID-19; Z86.73 Personal history of transient ischemic attack (TIA), and cerebral infarction without residual deficits; E11.22 Type 2 diabetes mellitus with diabetic chronic kidney disease; I12.9 Hypertensive chronic kidney disease with stage 1 through stage 4 chronic kidney disease, or unspecified chronic kidney disease; N18.9 Chronic kidney disease, unspecified; F17.200 Nicotine dependence, unspecified, uncomplicated; Z79.82 Long term (current) use of aspirin; Z79.4 Long term (current) use of insulin; E11.65 Type 2 diabetes mellitus with hyperglycemia; Z83.3 Family history of diabetes mellitus; Z82.49 Family history of ischemic heart disease and other diseases of the circulatory system
CPT/HCPCS: 36415; 80048; 80076; 82271; 82962; 85007; 85025; 85027; 85610; 85730; 86850; 86900; 86901; 86920; 88305; 88342; G0378; C9113; J0171; J0360; J1170; J2704; J7030; J7040; P9016; U0003